=== PATIENT | female | born 1940 | race Caucasian/White ===

== ENCOUNTER 2018-04-28 10:45 | Outpatient (CLI) | payer MEDICARE, BC ==
--- NOTE | 2018-04-28 12:29 | RAD ---
TWO VIEWS CHEST: DATE: 04/28/2018. COMPARISON: Comparison is made to previous exam from 06/06/2015. FINDINGS: Two views chest demonstrate some cardiomegaly and calcification of the aorta. Some diffuse interstit ial markings seen throughout the lungs compatible with interstitial fibrotic changes unchanged since the previous comparison radiograph from 06/06/2015. Minimal blunting of the right costophrenic angle i s seen compatible with some right pleural scarring or tiny right-sided pleural effusion, also stable. No acute intrathoracic abnormality is seen. There is interval placement of a TAVR. IMPRESSION: Chronic interstitial changes. No acute intrathoracic abnormality is seen. POS: MICHELLE
== END 2018-04-28 10:46 | disposition home or self-care (01) ==
LOC: RAD 10:45
PROVIDERS: ATTEND Internal Medicine Pulmonary Disease
DX: R06.00 Dyspnea, unspecified (principal); J98.4 Other disorders of lung
CPT/HCPCS: 71046

== ENCOUNTER 2018-12-19 12:20 | Emergency (ER) | payer MEDICARE, BC ==
[2018-12-19] MEDS ORDERED: Adacel (T-DAP) 0.5 ML SYRINGE ONE (13:01)
[2018-12-19 13:17] LABS: #Eosinphils 0.1 thou/uL (0.0-0.7); #Lymphocytes 1.8 thou/uL (1.20-3.40); #Monocytes 1.2 thou/uL (0.11-0.59); #Neutrophils 9.7 thou/uL (1.40-6.50); %Basophils 0.3 % (0.0-1.0); %Eosinophils 1.1 % (0.0-10.0); %Lymphocytes 13.9 % (21.0-51.0); %Monocytes 9.2 % (0.0-10.0); %Neutrophils 75.5 % (42.0-75.0); Hemoglobin 11.8 g/dL (12.0-16.0); Mean Corpuscular HGB CONC 32.6 g/dL (32.0-36.0); Mean Corpuscular Hemoglobin 32.3 pg (27.0-31.0); Mean Corpuscular Volume 99.2 fL (78.0-98.0); Mean Platelet Volume 7.9 fL (7.4-10.4); Platelet Count 149 thou/uL (130-400); RBC Distribution Width 12.2 % (11.5-14.5); Red Blood Cell (RBC) Count 3.64 mill/uL (4.20-5.40); White Blood Cell (WBC) Count 12.8 thou/uL (4.8-10.8)
--- NOTE | 2018-12-19 13:23 | CT ---
CT head without contrast: Multiple axial tomograms obtained through the head without IV enhancement. INDICATIONS: Trauma COMPARISON: None FINDINGS: Ventricles have normal size and position. No evidence of intracranial mass, hemorrhage, edema, or infarct. Visualized sinuses and mastoids appear clear. Bony calvarium appears unremarkable. IMPRESSION: No acute finding
[2018-12-19 13:46] LABS: ALT (SGPT) 24 U/L (8-55); AST (SGOT) 30 U/L (5-34); Albumin 3.3 g/dL (3.4-4.8); Alkaline Phosphatase 102 U/L (40-110); Anion Gap 8 mmol/L (10-20); BUN (Urea Nitrogen) 9 mg/dL (9.8-20.1); Bilirubin, Total 0.8 mg/dL (0.2-1.2); Calc. Creatinine Clearance 0 mL/min (70-130); Calcium 8.1 mg/dL (7.8-10.44); Carbon Dioxide 30 mmol/L (23-31); Chloride 102 mmol/L (98-107); Estimated GFR-MDRD 89; Globulin 2.8 g/dL (2.4-3.5); Glucose 82 mg/dL (83-110); Potassium 3.3 mmol/L (3.5-5.1); Protein, Total 6.1 g/dL (6.0-8.3); Sodium 137 mmol/L (136-145)
--- NOTE | 2018-12-19 13:54 | RAD ---
EXAM: Single view of the chest HISTORY: Fall with cough and dehydration COMPARISON: 06/23/2011 FINDINGS: Single view of the chest shows a normal sized cardiomediastinal silhouette. Increased inte rstitial lung markings and flattening of the hemidiaphragms a be secondary to COPD. Atherosclerotic calcifications are seen in the aorta. There is no evidence of consolidation, mass, or pleural effusi on. The bones are unremarkable. IMPRESSION: No evidence of acute cardiopulmonary disease
--- NOTE | 2018-12-19 13:55 | RAD ---
Exam: Single view of the pelvis HISTORY: Fall with pelvic pain COMPARISON: None FINDINGS: A single view the pelvis shows no evidence of acute fracture or dislocation. No degenerativ e changes seen in either hip. IMPRESSION: No evidence of acute osseous abnormality.
[2018-12-19 14:01] LABS: CKMB 1.9 ng/mL (0-6.6)
[2018-12-19 17:05] LABS: Troponin I 0.083 ng/mL (< 0.028)
== END 2018-12-19 17:32 | disposition home or self-care (01) ==
LOC: ERS 12:20
DX: S01.01XA Laceration without foreign body of scalp, initial encounter (principal); R79.89 Other specified abnormal findings of blood chemistry; J44.9 Chronic obstructive pulmonary disease, unspecified; I10 Essential (primary) hypertension; E78.5 Hyperlipidemia, unspecified; F41.9 Anxiety disorder, unspecified; F17.210 Nicotine dependence, cigarettes, uncomplicated; Z79.51 Long term (current) use of inhaled steroids; Z79.899 Other long term (current) drug therapy; W19.XXXA Unspecified fall, initial encounter
CPT/HCPCS: 12001; 36415; 70450; 71045; 72170; 80053; 82553; 84484; 85025; 90471; 90715

== ENCOUNTER 2019-09-17 10:05 | Inpatient (IN) | payer MEDICARE, BC, OTHER ==
[2019-09-17] MEDS ORDERED: methylPREDNISolone Sod Succ/PF 125 MG/2 ML VIAL ONE (10:21)
[2019-09-17] MEDS ORDERED: Magnesium 2 GM/50 ML BAG (IN WATER) ONE (10:22)
[2019-09-17] MEDS ORDERED: cefTRIAXone\\ROCEPHIN 2 GM VIAL ONE (10:49)
[2019-09-17] MEDS ORDERED: Acetaminophen 500 MG TAB ONE (10:49)
[2019-09-17] MEDS ORDERED: Azithromycin 500 MG VIAL ONE (10:49)
[2019-09-17] MEDS ORDERED: Albuterol 200 PUFF (6.7GM INHALER) ONE (10:51)
[2019-09-17 10:52] LABS: #Basophils 0.1 thou/uL (0.0-0.2); #Eosinphils 0.2 thou/uL (0.0-0.7); #Monocytes 1.2 thou/uL (0.11-0.59); #Neutrophils 11.6 thou/uL (1.40-6.50); %Basophils 0.4 % (0.0-1.0); %Eosinophils 1.1 % (0.0-10.0); %Lymphocytes 13.1 % (21.0-51.0); %Monocytes 7.9 % (0.0-10.0); %Neutrophils 77.6 % (42.0-75.0); Hemoglobin 12.6 g/dL (12.0-16.0); Mean Corpuscular HGB CONC 32.9 g/dL (32.0-36.0); Mean Corpuscular Hemoglobin 32.3 pg (27.0-31.0); Mean Corpuscular Volume 98.2 fL (78.0-98.0); Mean Platelet Volume 8.6 fL (7.4-10.4); Platelet Count 186 thou/uL (130-400); RBC Distribution Width 12.7 % (11.5-14.5); Red Blood Cell (RBC) Count 3.89 mill/uL (4.20-5.40)
--- NOTE | 2019-09-17 11:10 | RAD ---
EXAM: Single view of the chest HISTORY: Shortness of breath and wheezing COMPARISON: 12/19/2018 FINDINGS: Single view of the chest shows an enlarged but stable cardiomediastinal silhouette. Increa sed interstitial markings are present. The patient is status post aortic valve repair. There are small bilateral pleural effusions with adjacent atelectasis versus infiltrates. The bones are unremar kable IMPRESSION: Bilateral pleural effusions with adjacent atelectasis versus infiltrates.
[2019-09-17 11:15] LABS: ALT (SGPT) 24 U/L (8-55); AST (SGOT) 42 U/L (5-34); Alkaline Phosphatase 128 U/L (40-110); Anion Gap 14 mmol/L (10-20); BUN (Urea Nitrogen) 9 mg/dL (9.8-20.1); Bilirubin, Total 0.9 mg/dL (0.2-1.2); CK (CPK) 84 U/L (29-168); Calc. Creatinine Clearance 0 mL/min (70-130); Calcium 8.6 mg/dL (7.8-10.44); Carbon Dioxide 30 mmol/L (23-31); Chloride 99 mmol/L (98-107); Estimated GFR-MDRD Greater than 90; Glucose 174 mg/dL (83-110); Potassium 3.5 mmol/L (3.5-5.1); Sodium 139 mmol/L (136-145)
[2019-09-17 11:20] LABS: CKMB 1.6 ng/mL (0-6.6)
[2019-09-17 11:43] LABS: Analyzer IN Cardio ER; Base Excess (BEa) 4.6 mEq/L (-2.0 to +3.0); CO2 Tension 48.2 mmHg (35.0-45.0); Calcium, Ionized (arterial) 1.06 mmol/L (1.12-1.30); Carboxyhemoglobin (COHb) 0.3 gm% (0.0-3.0); Hemoglobin (Hb) 12.4 g/dL (12.0-16.0); O2 Tension (PaO2), arterial 92.9 mmHg (> 70.0); Potassium - ABG Lab 2.72 mmol/L (3.70-5.30); pH, Arterial 7.41 (7.35-7.45)
[2019-09-17 11:46] LABS: Puncture Site LRA
[2019-09-17] MEDS ORDERED: Aspirin Chewable 81 MG TAB ONE (13:29)
[2019-09-17] MEDS ORDERED: Ondansetron PF 4 MG/2 ML Vial IVP PRN (14:11)
[2019-09-17] MEDS ORDERED: Acetaminophen 325 MG TAB PO PRN (14:11)
--- NOTE | 2019-09-17 15:59 | CT ---
EXAM: CT of the chest without contrast HISTORY: Shortness of breath for 2 days COMPARISON: None TECHNIQUE: Multiple contiguous axial images were obtained in a CT the chest without contrast. Coronal and sagittal reformats were performed. FINDINGS: HEART: Enlarged. Patient is status post aortic valve repair. Calcifications are seen in the coronary arteries and aorta. MEDIASTINUM: No hilar or mediastinal lymphadenopathy. Evaluation of the mediastinum is limited withou t IV contrast. LUNGS: No focal nodules or masses. Bronchiectasis is seen in the right lower lobe. PLEURAL SPACE: Small bilateral pleural effusions with adjacent atelectasis. A small amount of fluid i s seen in the minor fissure on the right. A right lower lobe infiltrate cannot be excluded. CHEST WALL SOFT TISSUES: Unremarkable OSSEOUS STRUCTURES: Degenerative changes in the spine. VISUALIZED SUBDIAPHRAGMATIC STRUCTURES: Unremarkable IMPRESSION: Bilateral pleural effusions with adjacent atelectasis. A right lower lobe infiltrate cannot be exclud ed.
[2019-09-17] MEDS: ALPRAZolam 0.25 MG TAB PO PRN ×2 (17:40→23:49)
[2019-09-17 17:46] LABS: Troponin I 0.063 ng/mL (< 0.028)
[2019-09-17] MEDS: Mometasone 200 MCG/Formoterol 5 MCG 120 PUFF INHALER INH SCH (18:26)
[2019-09-17 19:25] VITALS: BMI 29.6
[2019-09-17] MEDS: Dexamethasone 10 MG/ML VIAL SLOW IVP SCH (20:28)
[2019-09-17 20:52] LABS: Troponin I 0.057 ng/mL (< 0.028)
[2019-09-18] MEDS ORDERED: Albuterol Sulfate 2.5 mg/3 ml Neb NEB PRN (03:18)
[2019-09-18 03:50] LABS: #Lymphocytes 0.6 thou/uL (1.20-3.40); #Monocytes 0.1 thou/uL (0.11-0.59); #Neutrophils 6.1 thou/uL (1.40-6.50); %Eosinophils 0.4 % (0.0-10.0); %Lymphocytes 8.8 % (21.0-51.0); %Monocytes 1.7 % (0.0-10.0); %Neutrophils 89.1 % (42.0-75.0); Hemoglobin 11.9 g/dL (12.0-16.0); Mean Corpuscular Hemoglobin 31.4 pg (27.0-31.0); Mean Corpuscular Volume 97.9 fL (78.0-98.0); Mean Platelet Volume 8.7 fL (7.4-10.4); Platelet Count 167 thou/uL (130-400); RBC Distribution Width 12.7 % (11.5-14.5); Red Blood Cell (RBC) Count 3.78 mill/uL (4.20-5.40); White Blood Cell (WBC) Count 6.8 thou/uL (4.8-10.8)
[2019-09-18 05:24] LABS: Anion Gap 14 mmol/L (10-20); BUN (Urea Nitrogen) 8 mg/dL (9.8-20.1); Calc. Creatinine Clearance 95 mL/min (70-130); Calcium 8.6 mg/dL (7.8-10.44); Carbon Dioxide 29 mmol/L (23-31); Chloride 103 mmol/L (98-107); Estimated GFR-MDRD Greater than 90; Glucose 135 mg/dL (83-110); Potassium 3.5 mmol/L (3.5-5.1); Sodium 142 mmol/L (136-145)
--- NOTE | 2019-09-18 05:41 | HP ---
PRIMARY CARE PROVIDER: Estrella, Dr. Fox. She states at this time she has been sick 2 or 3 days, shortness of breath, really gasping for breath at times. She has oxygen at home. She was placed on 100% rebreather here. She is in the high 90s to 100%. No fever. No chills. She has a chronic cough, that maybe somewhat worse. No diarrhea. No loss of taste or smell. No other symptomatology. She has COPD. She smoked up until April. In the distant past, she has smoked as much as 3 packs a day. She has hypertension. In 2016, she had transarterial aortic valve replacement. She has dyslipidemia. She has had stents in both carotid arteries and subclavian on one side. She has had acute hearing loss in her left ear. She has had cataract surgery bilaterally. CURRENT MEDICATIONS: 1. Albuterol inhaler two puffs every 4 hours. 2. Ellipse Compact. 3. Synthroid 75 mcg a day. 4. Diltiazem 180 mg a day. 5. Lorazepam 1 mg every 4 hours p.r.n. 6. Lipitor 40 mg a day. 7. Pepcid 20 mg a day. 8. Trelegy Ellipta 100/62.5/25 inhalation metered-dose inhaler once a day. ALLERGIES: SINGULAIR. SURGICAL HISTORY: Given in medical history. FAMILY HISTORY: Mother, 2 uncles, and grandfather had coronary artery disease. She is . Full code status. Nancy Dejesus, daughter is next of kin for decision making. She smoked as much as 3 packs of cigarettes a day, started decreasing slowly until she quit in April of this year. She drinks rare alcohol. REVIEW OF SYSTEMS: GENERAL: No fainting or headaches, but she has some dizziness arising from a stooped position. EYES: No double vision, blurred vision, flashing lights. EAR, NOSE, AND THROAT: Hard of hearing on the left. No ear pain or drainage. No nasal bleeding. No trouble swallowing. CARDIAC: No chest pain, orthopnea, or paroxysmal nocturnal dyspnea. RESPIRATIONS: Chronic shortness of breath, on home O2, 2 L per nasal cannula. Chronic cough, nonproductive. GASTROINTESTINAL: Some nausea this morning. No abdominal pain. No vomiting. No melena. GENITOURINARY: No hematuria or dysuria. MUSCULOSKELETAL: She states feet swell on occasion and she has recently started taking a 20 mg Lasix for that. NEUROLOGICAL: No strokes, seizures, or focal weakness. PSYCHIATRIC: No anxiety or depression. SKIN: Bruises easily. No rash. No bleeding. HEME/LYMPH: No tender or swollen lymph nodes in axilla, inguinal, or cervical area. PHYSICAL EXAMINATION: GENERAL: She is alert, pleasant, cooperative lady, really in no distress at the present time except for the fact that she has high-flow O2 at 100% by nasal cannula on. VITAL SIGNS: Blood pressure 144/65, respirations 18 to 24, temperature was 98.6, pulse was 85 to 92. HEAD, EYES, EARS, NOSE, AND THROAT: Reveal pupils equal and round with implants. Extraocular movements are intact. Sclerae are white. Tympanic membranes are clear. Nose is clear. Oral mucous membranes are wet. Dental hygiene is good. CHEST: Hyperresonant with wheezes and rhonchi in all cotter. HEART: Regular rate and rhythm. First and second heart sounds are clear. There are no appreciated murmurs or gallops. ABDOMEN: Soft. Bowel sounds are normal. There is no hepatosplenomegaly. No masses. No rebound. No bruits. EXTREMITIES: Reveal trace edema with no cyanosis or clubbing. PULSES: Carotid, radial, and femoral pulses intact. Pedal pulses palpable marginally. SKIN: Warm and dry without significant bruises or rash. HEME/LYMPH: No tender or swollen lymph nodes in axilla, inguinal, or cervical area. NEUROLOGIC: Cranial nerves 2 through 12 are intact. Deep tendon reflexes symmetric. IMAGING STUDIES: Chest x-ray personally reviewed reveals bilateral pleural effusions, bilateral infiltrates, right greater than left. No cardiomegaly. LABORATORY DATA: COVID test was negative. Chemistries, lytes are balanced. BUN and creatinine within normal limits. Bilirubin 0.9, AST 42, ALT 24. BNP was 1842. Troponin 0.04. ABG revealed a pH 7.41, O2 of 92.9 on high-flow O2, and a CO2 of 48.2. White cell count is 15.0 with a lymphopenia, hemoglobin is 12.6, platelet count is 186,000. ADMITTING DIAGNOSES: The patient had 2 COVID tests that are negative, however, because of her symptomatology, chest x-ray, I am ordering a noncontrast CT of the chest, D-dimer, ferritin and CRP, acute reactants before I make a final decision on whether to admit her as a COVID or not. At this time, she will be considered a COVID risk with pneumonia, bilateral pleural effusions, chronic obstructive pulmonary disease exacerbation, acute respiratory failure, combined prosthetic aortic valve, atherosclerotic vascular disease, hypertension, and hypothyroidism. Currently, antibiotics have been given. Inhalers have been ordered instead of nebulizers. Steroids have been given. When the lab and CAT scan are available, I will make a final decision on whether to make this patient a COVID rule out isolation, she currently is not. Job ID: [id number]
[2019-09-18] MEDS: Mometasone 200 MCG/Formoterol 5 MCG 120 PUFF INHALER INH SCH ×2 (05:48→18:20)
[2019-09-18] MEDS: ALPRAZolam 0.25 MG TAB PO PRN ×3 (05:50→20:41)
--- NOTE | 2019-09-18 07:32 | PDOC.HOSPP ---
- Subjective Encounter Date: 09/18/19 Encounter Time: 07:25 Subjective: acute sob resolved, no additional complaints - Objective Vital Signs & Weight: Vital Signs (12 hours) Temp Pulse Resp Pulse Ox 09/18/19 05:48 90 24 H 100 09/18/19 03:40 97.4 F L 09/18/19 02:00 97.5 F L 09/18/19 00:00 97.4 F L 09/17/19 20:00 97.8 F 99 Weight Weight 157 lb Most Recent Monitor Data Heart Rate from ECG 84 NIBP 152/80 NIBP BP-Mean 104 Respiration from ECG 14 SpO2 100 I&O: 09/17/19 09/18/19 09/19/19 06:59 06:59 06:59 Intake Total 810 Balance 810 Result Diagrams: 09/18/19 03:22 09/18/19 03:22 Hospitalist ROS - Medication Medications: Active Medications Generic Name Dose Route Start Last Admin Trade Name Freq PRN Reason Stop Dose Admin Alprazolam 0.25 mg 09/17/19 17:15 09/18/19 05:50 Xanax PO 0.25 mg Q6H PRN Administration Anxiety Dexamethasone 10 mg 09/17/19 21:00 09/17/19 20:28 Decadron SLOW IVP 10 mg Q12HR YANIRA Administration Mometasone Furoate/Formoterol Fumar 2 puff 09/17/19 18:30 09/18/19 05:48 Dulera 200 Mcg/5 Mcg Inhaler INH 2 puff BID-RT YANIRA Administration - Exam General Appearance: awake alert Neck: no JVD Heart: RRR, no murmur Respiratory - other findings: diminished BS Gastrointestinal: soft, non-tender, normal bowel sounds Extremities: no edema Hosp A/P (1) Acute and chronic respiratory failure with hypoxia Code(s): J96.21 - ACUTE AND CHRONIC RESPIRATORY FAILURE WITH HYPOXIA Status: Acute (2) Chronic obstructive pulmonary disease with (acute) exacerbation Code(s): J44.1 - CHRONIC OBSTRUCTIVE PULMONARY DISEASE W (ACUTE) EXACERBATION Status: Acute (3) PNA (pneumonia) Code(s): J18.9 - PNEUMONIA, UNSPECIFIED ORGANISM Status: Acute Qualifiers: Pneumonia type: due to Pneumococcus Laterality: right Lung location: lower lobe of lung Qualified Code(s): J13 - Pneumonia due to Streptococcus pneumoniae (4) HTN (hypertension) Code(s): I10 - ESSENTIAL (PRIMARY) HYPERTENSION Status: Chronic Qualifiers: Hypertension type: essential hypertension Qualified Code(s): I10 - Essential (primary) hypertension (5) Hypothyroid Code(s): E03.9 - HYPOTHYROIDISM, UNSPECIFIED Status: Chronic Qualifiers: Hypothyroidism type: unspecified Qualified Code(s): E03.9 - Hypothyroidism , unspecified - Plan move to medical cont resp tx, iv antibx await ID opinion reinstitute diltiazem, synthroid, lipitor
[2019-09-18] MEDS: Enoxaparin Sodium 40 MG/0.4 ML SYRINGE SC SCH (08:29)
[2019-09-18] MEDS: Dexamethasone 10 MG/ML VIAL SLOW IVP SCH ×2 (08:29→20:57)
[2019-09-18] MEDS ORDERED: Prevnar 13-Val Conj/PF 0.5 ML SYRINGE IM ONE (09:00)
[2019-09-18] MEDS: cefTRIAXone\\ROCEPHIN 1 GM in Sodium Chloride 0.9% 100 ML IVPB SCH (13:04)
--- NOTE | 2019-09-18 14:06 | CON ---
DATE OF CONSULTATION: 09/18/2019 REASON FOR CONSULTATION: Hypoxemia, COPD, aortic valve disease, and a concern with COVID infection. HISTORY OF PRESENT ILLNESS: A 79-year-old with history of chronic smoking, advanced COPD, and aortic valve insufficiency, managed with TAVR actually in [place] a few years ago. Now, she has developed what has been described as failure of the valve and she was scheduled to go to [place] for replacement, and because of the epidemic, that has been placed on hold for now. In July, she developed a fairly rapid worsening of her respiratory status, had to be brought into [facility], and she was treated there in [place], and now she experienced the same thing, usually starts a few days before and then progressed to the point where she required O2 supplementation. Also in the emergency room note, it is stated that the patient reported fever. When I inquired about fever, she has adamantly denied that she ever had a fever, never felt chills of any significant nature. She does have productive cough with greenish sputum. No headaches. No visual symptoms, sore throat, odynophagia, or dysphagia. No dental pain. No back pain. No abdominal pain or diarrhea. No genitourinary symptoms. No joint symptoms other than chronic osteoarthrosis symptoms. No neurological problems. PAST MEDICAL HISTORY: 1. Chronic smoking. 2. COPD. 3. Coronary artery disease with stents x3. 4. Aortic valve replacement via TAVR. 5. Hypertension. 6. Hyperlipidemia. 7. Degenerative joint disease. 8. Irritable bowel syndrome or inflammatory bowel disease, not clear. 9. She also has had a hysterectomy. 10. Tonsillectomy. 11. Lumpectomy. SOCIAL HISTORY: Lives in the area. Actually, she is still smoking cigarettes daily and has smoked for 30 years, half a pack a day, it looks like she quit in April just recently. ALLERGIES: SINGULAIR. CURRENT MEDICATIONS: 1. Albuterol. 2. Alprazolam. 3. Lipitor. 4. Azithromycin. 5. Ceftriaxone. 6. Dexamethasone. 7. Enoxaparin. 8. Levothyroxine. 9. Ondansetron. PHYSICAL EXAMINATION: VITAL SIGNS: T-max 98.4, blood pressure 140/60, O2 saturation 99 on 2 L nasal cannula. SKIN: With fewer areas of bruising. Peripheral IV access and she is voiding in the bedside commode. No lymphadenopathy. HEENT: Ocular movements conjugate. Oral cavity is normal with dentures. NECK: Supple. LUNGS: With a few areas with wheezing, a few crackles noted particularly on the right side, somewhat diminished lung sounds. HEART: S1 and S2 and a somewhat harsh 2/6 to 3/6 systolic murmur at the aortic area, question of a diastolic murmur as well. No S3. Regular rate. ABDOMEN: Soft, not distended or tender. No ascites. No bladder distention. EXTREMITIES: There is 1 to 2+ edema in the lower extremities. Pulses 1+ in dorsalis pedis. Moves extremities equally. NEUROLOGIC: She is awake, oriented, follows commands. A little bit of difficulty with recollection, but not out of the ordinary. LABORATORY DATA: Reportedly, had two SARS-CoV test, one in July, another one on the and she has had a rapid test reportedly done, although I do not see it here. The other labs are the white cell count was 15,000 down to 6.8, hemoglobin 12.6, platelets 186, 77% neutrophils, and the lymphocytes were down to 0.6. D-dimer 3.69. A pH of 7.4, pCO2 of 48, and pO2 of 92. Creatinine 0.56. Ferritin 113 and CRP 3.14. Albumin 4.0. Chest CT with pleural effusions, adjacent atelectasis, right lower lobe infiltrate, possible. ASSESSMENT: 1. Severe chronic obstructive pulmonary disease. 2. Aortic valve insufficiency status post transaortic valve replacement with now reported failure of the valve, in need for redo transaortic valve replacement. 3. Worsening dyspnea, which has happened in two episodes, one in July, now this one. She does have some abnormalities that might be suggestive of community-acquired pneumonia, but the findings are not typical of COVID infection. DISCUSSION: Her pretest likelihood I would say is in the 40% range, so her post-test likelihood is less than 15% I would say, but to be sure we will check her antibody levels, and if they are negative, then I think that we have effectively ruled out COVID. It is likely that the COPD plus the superimposed valve dysfunction are contributing to her symptoms and the possible community-acquired pneumonia, which is more likely to be bacterial in etiology. Job ID: [id number] [facility]
[2019-09-18] MEDS: Azithromycin 500 MG in Sodium Chloride 0.9% 250 ML 250 ML IVPB SCH (15:25)
[2019-09-18 15:27] LABS: SARS-CoV-2 MS2 Positive; SARS-CoV-2 N Gene Negative; SARS-CoV-2 S Gene Negative; SARS-CoV-2 orf1ab Negative
[2019-09-18] MEDS: Atorvastatin Calcium 40 MG TAB PO SCH (20:41)
[2019-09-19] MEDS ORDERED: Bacteriostatic Water 30 ML VIAL FS PRN (01:10)
[2019-09-19] MEDS ORDERED: methylPREDNISolone Sod Succ/PF 125 MG/2 ML VIAL IVP SCH (01:15)
[2019-09-19] MEDS ORDERED: Lorazepam 2 MG/ML VIAL SLOW IVP SCH (01:15)
[2019-09-19] MEDS ORDERED: Magnesium 2 GM/50 ML 2 GM in Premix Bag 1 BAG IVPB SCH (01:15)
[2019-09-19] MEDS: Levothyroxine Sodium 75 MCG TAB PO SCH (05:55)
[2019-09-19] MEDS: ALPRAZolam 0.25 MG TAB PO PRN ×3 (06:10→20:36)
[2019-09-19] MEDS: Mometasone 200 MCG/Formoterol 5 MCG 120 PUFF INHALER INH SCH ×2 (06:11→19:11)
[2019-09-19] MEDS: Enoxaparin Sodium 40 MG/0.4 ML SYRINGE SC SCH (10:15)
[2019-09-19] MEDS: Dexamethasone 10 MG/ML VIAL SLOW IVP SCH (10:15)
[2019-09-19] MEDS: cefTRIAXone\\ROCEPHIN 1 GM in Sodium Chloride 0.9% 100 ML IVPB SCH (11:42)
--- NOTE | 2019-09-19 12:51 | PDOC.HOSPP ---
- Subjective Encounter Date: 09/19/19 Encounter Time: 12:49 Subjective: still dyspneic, no fever - Objective Vital Signs & Weight: Vital Signs (12 hours) Temp Pulse Resp BP BP Pulse Ox 09/19/19 11:00 98.1 F 92 15 171/76 H 92 L 09/19/19 07:22 97.9 F 88 16 173/86 H 98 09/19/19 05:00 98.3 F 94 20 177/81 H 93 L 09/19/19 01:25 87 20 181/78 H 97 09/19/19 00:55 97.9 F 102 H 24 H 191/79 H 87 L Weight Weight 157 lb Most Recent Monitor Data Heart Rate from ECG 88 NIBP 143/64 NIBP BP-Mean 90 Respiration from ECG 13 SpO2 100 I&O: 09/18/19 09/19/19 09/20/19 06:59 06:59 06:59 Intake Total 1300 Output Total 850 Balance 450 Result Diagrams: 09/18/19 03:22 09/18/19 03:22 Hospitalist ROS - Medication Medications: Active Medications Generic Name Dose Route Start Last Admin Trade Name Freq PRN Reason Stop Dose Admin Alprazolam 0.25 mg 09/17/19 17:15 09/19/19 06:10 Xanax PO 0.25 mg Q6H PRN Administration Anxiety Atorvastatin Calcium 40 mg 09/18/19 21:00 09/18/19 20:41 Lipitor PO 40 mg HS YANIRA Administration Diltiazem HCl 180 mg 09/18/19 09:00 09/19/19 10:15 Cardizem Cd PO 180 mg DAILY YANIRA Administration Enoxaparin Sodium 40 mg 09/18/19 09:00 09/19/19 10:15 Lovenox SC 40 mg 0900 YANIRA Administration Azithromycin 500 mg/ Sodium 250 mls @ 250 mls/hr 09/18/19 11:00 09/18/19 15: 25 Chloride IVPB 250 mls Q24HR YANIRA Administration Ceftriaxone Sodium 1 gm/ 100 mls @ 200 mls/hr 09/18/19 11:00 09/19/19 11:42 Sodium Chloride IVPB 100 mls Q24HR YANIRA Administration Levothyroxine Sodium 75 mcg 09/19/19 06:00 09/19/19 05:55 Synthroid PO 75 mcg 0600 YANIRA Administration Mometasone Furoate/Formoterol Fumar 2 puff 09/17/19 18:30 09/19/19 06:11 Dulera 200 Mcg/5 Mcg Inhaler INH 2 puff BID-RT YANIRA Administration Sodium Chloride 10 ml 09/18/19 09:00 09/19/19 10:15 Flush - Normal Saline IVF 10 ml Q12HR YANIRA Administration - Exam General Appearance: awake alert Neck: no JVD Heart: RRR, III/IV Respiratory - other findings: wheezes, rales all cotter Gastrointestinal: soft, non-tender, non-distended, normal bowel sounds Extremities: no edema Hosp A/P (1) Acute and chronic respiratory failure with hypoxia Code(s): J96.21 - ACUTE AND CHRONIC RESPIRATORY FAILURE WITH HYPOXIA Status: Acute (2) Chronic obstructive pulmonary disease with (acute) exacerbation Code(s): J44.1 - CHRONIC OBSTRUCTIVE PULMONARY DISEASE W (ACUTE) EXACERBATION Status: Acute (3) PNA (pneumonia) Code(s): J18.9 - PNEUMONIA, UNSPECIFIED ORGANISM Status: Acute Qualifiers: Pneumonia type: due to Pneumococcus Laterality: right Lung location: lower lobe of lung Qualified Code(s): J13 - Pneumonia due to Streptococcus pneumoniae (4) HTN (hypertension) Code(s): I10 - ESSENTIAL (PRIMARY) HYPERTENSION Status: Chronic Qualifiers: Hypertension type: essential hypertension Qualified Code(s): I10 - Essential (primary) hypertension (5) Hypothyroid Code(s): E03.9 - HYPOTHYROIDISM, UNSPECIFIED Status: Chronic Qualifiers: Hypothyroidism type: unspecified Qualified Code(s): E03.9 - Hypothyroidism , unspecified (6) CAD (coronary artery disease) Code(s): I25.10 - ATHSCL HEART DISEASE OF [place] CORONARY ARTERY W/O ANG PCTRS Status: Acute - Plan move to medical cont resp tx, iv antibx appreciate ID input reinstitute diltiazem, synthroid, lipitor stitch to duoneb, iv medrol
[2019-09-19] MEDS: methylPREDNISolone Sod Succ 40 MG VIAL IVP SCH ×2 (14:58→21:08)
[2019-09-19] MEDS: Azithromycin 500 MG in Sodium Chloride 0.9% 250 ML 250 ML IVPB SCH (15:02)
[2019-09-19 20:23] LABS: SARS-CoV-2 IgG Ab Non-Reactive (NonReactive); SARS-CoV-2 IgG Index 0.13 S/CO (< 1.40)
[2019-09-19] MEDS: Atorvastatin Calcium 40 MG TAB PO SCH (20:35)
[2019-09-20] MEDS ORDERED: ALPRAZolam 0.25 MG TAB PO SCH ×2 (00:45→22:15)
[2019-09-20] MEDS: methylPREDNISolone Sod Succ 40 MG VIAL IVP SCH ×3 (05:03→21:45)
[2019-09-20] MEDS: Levothyroxine Sodium 75 MCG TAB PO SCH (05:03)
[2019-09-20] MEDS: ALPRAZolam 0.25 MG TAB PO PRN ×4 (05:32→22:09)
[2019-09-20] MEDS ORDERED: Benzonatate 100 MG CAP PO PRN (06:26)
[2019-09-20] MEDS: Mometasone 200 MCG/Formoterol 5 MCG 120 PUFF INHALER INH SCH ×2 (06:30→19:01)
[2019-09-20 07:39] VITALS: BP 182/72
[2019-09-20] MEDS: Enoxaparin Sodium 40 MG/0.4 ML SYRINGE SC SCH (09:08)
--- NOTE | 2019-09-20 11:01 | PDOC.HOSPP ---
- Subjective Encounter Date: 09/20/19 Encounter Time: 10:59 Subjective: still sob, no better - Objective Vital Signs & Weight: Vital Signs (12 hours) Temp Pulse Resp BP Pulse Ox 09/20/19 08:00 95 09/20/19 07:39 98.0 F 102 H 20 182/72 H 95 09/20/19 06:33 89 18 95 09/20/19 06:30 89 18 95 09/20/19 05:08 97.9 F 93 19 178/87 H 96 09/20/19 00:44 97.6 F 88 17 168/73 H 97 09/19/19 23:38 92 L Weight Weight 157 lb Most Recent Monitor Data Heart Rate from ECG 88 NIBP 143/64 NIBP BP-Mean 90 Respiration from ECG 13 SpO2 100 I&O: 09/19/19 09/20/19 09/21/19 06:59 06:59 06:59 Intake Total 480 Balance 480 Result Diagrams: 09/18/19 03:22 09/18/19 03:22 Hospitalist ROS - Medication Medications: Active Medications Generic Name Dose Route Start Last Admin Trade Name Freq PRN Reason Stop Dose Admin Albuterol/Ipratropium 3 ml 09/19/19 13:00 09/20/19 06:33 Duoneb NEB 3 ml [id number] YANIRA Administration Alprazolam 0.25 mg 09/17/19 17:15 09/20/19 05:32 Xanax PO 0.25 mg Q6H PRN Administration Anxiety Atorvastatin Calcium 40 mg 09/18/19 21:00 09/19/19 20:35 Lipitor PO 40 mg HS YANIRA Administration Benzonatate 100 mg 09/20/19 06:26 09/20/19 06:33 Tessalon PO 100 mg Q4H PRN Administration Cough Diltiazem HCl 180 mg 09/18/19 09:00 09/20/19 09:08 Cardizem Cd PO 180 mg DAILY YANIRA Administration Enoxaparin Sodium 40 mg 09/18/19 09:00 09/20/19 09:08 Lovenox SC Not Given 0900 YANIRA Azithromycin 500 mg/ Sodium 250 mls @ 250 mls/hr 09/18/19 11:00 09/19/19 15: 02 Chloride IVPB 250 mls Q24HR YANIRA Administration Ceftriaxone Sodium 1 gm/ 100 mls @ 200 mls/hr 09/18/19 11:00 09/19/19 11:42 Sodium Chloride IVPB 100 mls Q24HR YANIRA Administration Levothyroxine Sodium 75 mcg 09/19/19 06:00 09/20/19 05:03 Synthroid PO 75 mcg 0600 YANIRA Administration Methylprednisolone Sodium Succinate 20 mg 09/19/19 14:00 09/20/19 05:03 Solu-Medrol IVP 20 mg Q8HR YANIRA Administration Mometasone Furoate/Formoterol Fumar 2 puff 09/17/19 18:30 09/20/19 06:30 Dulera 200 Mcg/5 Mcg Inhaler INH 2 puff BID-RT YANIRA Administration Sodium Chloride 10 ml 09/18/19 09:00 09/20/19 09:08 Flush - Normal Saline IVF 10 ml Q12HR YANIRA Administration Sterile Water 2 ml 09/19/19 01:10 09/19/19 21:09 Bacteriostatic Water FS 2 ml PRN PRN Administration RECONSTITUTION - Exam Neck: no JVD Heart: RRR Respiratory - other findings: no wheezes, lower lube rales Gastrointestinal: soft, non-tender, normal bowel sounds Extremities: no edema Hosp A/P (1) Acute and chronic respiratory failure with hypoxia Code(s): J96.21 - ACUTE AND CHRONIC RESPIRATORY FAILURE WITH HYPOXIA Status: Acute (2) Chronic obstructive pulmonary disease with (acute) exacerbation Code(s): J44.1 - CHRONIC OBSTRUCTIVE PULMONARY DISEASE W (ACUTE) EXACERBATION Status: Acute (3) PNA (pneumonia) Code(s): J18.9 - PNEUMONIA, UNSPECIFIED ORGANISM Status: Acute Qualifiers: Pneumonia type: due to Pneumococcus Laterality: right Lung location: lower lobe of lung Qualified Code(s): J13 - Pneumonia due to Streptococcus pneumoniae (4) HTN (hypertension) Code(s): I10 - ESSENTIAL (PRIMARY) HYPERTENSION Status: Chronic Qualifiers: Hypertension type: essential hypertension Qualified Code(s): I10 - Essential (primary) hypertension (5) Hypothyroid Code(s): E03.9 - HYPOTHYROIDISM, UNSPECIFIED Status: Chronic Qualifiers: Hypothyroidism type: unspecified Qualified Code(s): E03.9 - Hypothyroidism , unspecified (6) CAD (coronary artery disease) Code(s): I25.10 - ATHSCL HEART DISEASE OF [place] CORONARY ARTERY W/O ANG PCTRS Status: Acute - Plan move to medical cont resp tx, iv antibx ECHO card consult re dysfunctioning TAVR reinstitute diltiazem, synthroid, lipitor stitch to duoneb, iv medrol
--- NOTE | 2019-09-20 12:18 | RAD ---
RADIOGRAPH CHEST 1 VIEW: DATE: 09/20/2019 TIME: 11:54 AM HISTORY: 79-year-old female with dyspnea COMPARISON: 09/17/2019 FINDINGS: Region of groundglass infiltrate in right upper-mid lung field appears slightly worse or new now comp ared to previous. No other interval change. IMPRESSION: 1. No interval change in bilateral small to moderate pleural effusions. 2. No interval change in diffuse prominent interstitial markings, acute versus chronic. 3. Apparent new small faint right upper lobe infiltrate. 4. No other interval change. 5. Status post TAVR
[2019-09-20] MEDS: Azithromycin 500 MG in Sodium Chloride 0.9% 250 ML 250 ML IVPB SCH (12:28)
--- NOTE | 2019-09-20 13:19 | PDOC.EVN ---
Event Note - Event Note Event Note: discussed transfer to [facility] with admitting doctor- she is accepted and on waiting list
--- NOTE | 2019-09-20 14:50 | PDOC.EVN ---
Event Note - Event Note Event Note: spoke with Dr Chapa- RAFFAELE- TAVR totally dysfcnal- needs surgery. transfer to [facility] pending bed availability. REquested patient be move to CCU,. he will call [facility]
[2019-09-20] MEDS: cefTRIAXone\\ROCEPHIN 1 GM in Sodium Chloride 0.9% 100 ML IVPB SCH (15:27)
--- NOTE | 2019-09-20 15:50 | CON ---
DATE OF CONSULTATION: Critical care note, time 30 minutes. HISTORY OF PRESENT ILLNESS: The patient is an unfortunate 79-year-old woman, who presents with increasing dyspnea. The patient has previously undergone a TAVR procedure in 2016. She also has a history of coronary artery disease. She has undergone several PTCA and stent placements. The patient recently saw Dr. Mercado because of progressive dyspnea. She was noted to have failure of her aortic valve.She was scheduled to undergo a TAVR evaluation in [place], and the patient was admitted with increasing dyspnea. The patient denied having any chest discomfort. PAST MEDICAL HISTORY: 1. History of aortic stenosis. 2. Coronary artery disease. 3. History of hypertension. 4. Dyslipidemia. PAST SURGICAL HISTORY: Tonsillectomy and lumpectomy. SOCIAL HISTORY: Former smoker. ALLERGIES: MONTELUKAST. MEDICATIONS: See nursing list. PHYSICAL EXAMINATION: GENERAL: Ill-appearing woman, in mild distress. VITAL SIGNS: Blood pressure 178/87. NECK: Showed no jugular venous distention. LUNGS: Have crackles in both lung cotter. HEART: Regular rate and rhythm. Normal S1 and S2 with a 3/6 systolic murmur. ABDOMEN: Nondistended. EXTREMITIES: Showed mild bilateral edema. LABORATORY DATA: Sodium 139, potassium 3.5, chloride 99, bicarb 30, BUN 9, creatinine 0.61. Her glucose is 174. BNP was 1842. White blood cell count is 6.8, hemoglobin 11.9, hematocrit 37.9, and platelets 167. EKG revealed her to be in sinus tachycardia with a left bundle-branch block. IMPRESSION: 1. Congestive heart failure. 2. History of TAVR. 3. History of coronary artery disease. 4. Hypertension. 5. Chronic obstructive pulmonary disease. This patient presented with dyspnea due to congestive heart failure. The patient's emergent echocardiogram shows severe decrease in left ventricular systolic function with very elevated gradient across her aortic valve. From a cardiac standpoint , I immediately consulted furnace mechanic helper at [facility]. She has been accepted for transfer. The patient is in critical condition. She will be transferred to the ICU while she waits to be transferred. We will follow this patient with you through her hospitalization. Job ID: [id number] MTDD
--- NOTE | 2019-09-20 16:36 | PRG ---
DATE OF SERVICE: 09/20/2019 SUBJECTIVE: Ms. Goodman is slowly getting better. Still coughing intermittently, not as much sputum production as she usually produces at home. No chest pain. No abdominal pain. She was evaluated by Dr. Chapa and had an echocardiogram, which showed decrease in LV function and elevated gradient across the aortic valve. The patient is supposed to be transferred to the ICU at [facility]. OBJECTIVE: VITAL SIGNS: Show heart rate of 102 to 94. She is afebrile. BP 180/72, O2 saturations are 95% on 2 L. GENERAL: She does not appear in acute distress. LUNGS: With coarse lung sounds. HEART: S1 and S2. ABDOMEN: Soft. EXTREMITIES: 1+ edema in lower extremities. LABORATORY DATA: COVID antibody was nonreactive and she has 2 negative COVID PCRs. White cell count is down to 6.8, hemoglobin 11.9, platelets 167. Creatinine 0.56. ASSESSMENT AND DISCUSSION: COVID infection has been effectively ruled out, so I think as discussed by Dr. Edwards and Dr. Chapa, the patient's chronic obstructive pulmonary disease plus the superimposed valve dysfunction are causing the patient's clinical decompensation. The patient is to be transferred to [facility], where she has had all the previous procedures done. Job ID: [id number]
[2019-09-20] MEDS ORDERED: Furosemide 20 MG/2 ML VIAL SLOW IVP SCH (17:45)
[2019-09-20 19:56] VITALS: TEMP 97.9
[2019-09-20] MEDS: Atorvastatin Calcium 40 MG TAB PO SCH (20:17)
[2019-09-20] MEDS ORDERED: ALPRAZolam 0.5 MG TAB PO SCH (22:00)
--- NOTE | 2019-09-21 07:22 | DIS ---
DATE OF ADMISSION: 09/17/2019 DATE OF DISCHARGE: 09/20/2019 PRIMARY CARE PROVIDER: Dr. Fox at [facility]. PRESS SET UP: Dr. Mercado at [facility]. ANTICIPATED DATE OF TRANSFER: 09/20/2019 FINAL DIAGNOSES: Acute on chronic respiratory failure with hypoxia; chronic obstructive pulmonary disease with acute exacerbation; pneumonia, unspecified; dysfunctional transcatheter aortic valve replacement; coronary artery disease; hypertension. DISCHARGE MEDICATIONS: At the time of discharge, 1. Xanax 0.25 mg p.o. p.r.n. 2. Lipitor 40 mg a day. 3. Zithromax 250 mg IV piggyback q.24 hours. 4. Ceftriaxone 1 g q.24 hours. 5. Diltiazem 180 mg p.o. daily. 6. Enoxaparin 40 mg subcu daily. 7. DuoNeb 3 mL q.6 hours p.r.n. 8. Levothyroxine 75 mcg a day. 9. Methylprednisolone 20 mg IV q.12 hours. 10. Mometasone/formoterol 2 puffs inhaled twice a day. 11. Aspirin 81 mg a day. ALLERGIES: SINGULAIR. CODE STATUS: Full resuscitation. HOSPITAL COURSE: The patient was admitted to the [facility] through the emergency department with shortness of breath. She is on home oxygen. She has history of COPD, smoked up until April of this year, as much as 3 packs a day in the past. In 2016, she had a transarterial aortic valve replacement. She has been told it needs replacement. Chest was hyper-resonant with rhonchi and wheezes in all cotter. She has had 3 COVID tests that are negative. Chest x-ray revealed bilateral pleural effusions with atelectasis/infiltrates. Blood cultures are drawn, which are no growth at 48 hours. She was put on antibiotics and steroids for COPD. Her lungs have cleared; however, she continues to have rales in the bases. This morning, she asked to be transferred to [facility]. I had already at that time called for consult and an echocardiogram per Dr. Chapa. I initiated the transfer through the Transfer Center. I had 2 conversations with the accepting admitting physician, told the patient was accepted for admission, no current bed available, and that they would call when a bed was available. They have not been called yet. Currently, the patient's vital signs are temperature 98, pulse 94, blood pressure 182/72, 95% saturation on room air. Her current laboratory, most recent CBC on 09/17 was WBC 6.8, hemoglobin 11.9, and platelet count 167,000. Chemistries on 09/17 were balanced. On admission, her troponins were mildly elevated at 0.04, 0.06, and 0.057. Dr. Chapa called me after he read the echocardiogram and said that her leaflets basically did not move and that she needed transfer immediately to [facility]. I discussed how to facilitate that. He stated he would call them and asked that I move her to Critical Care Unit, which I have done. She is currently in no distress. Oxygen saturations are adequate. Heart sounds are difficult at this point. There are basilar rales. We are currently awaiting the call to transfer her. Job ID: [id number]
--- NOTE | 2019-09-21 08:09 | PQF ---
Dear : Daphne Edwards Date : 09/21/19 Please exercise your independent, professional judgment in responding to the clarification form. Clinical indicators are provided on the bottom of this form for your review Can you please further clarify the type and acuity of CHF? Please check appropriate box(es): HEART FAILURE: A. ACUITY [ ] Acute [ ] Acute on Chronic [ x] Chronic B. TYPE: [ x] Systolic / HFrEF [ ] Diastolic / HFpEF [ ] Combined Systolic / Diastolic [ ] Other diagnosis [ ] Unable to determine In addition, please specify: Present on Admission (POA): [ x ] Yes [ ] No [ ] Unable to determine Physician Signature: Date/Time: For continuity of documentation, please document condition throughout progress notes and discharge summary. Thank You. To be completed by CDI/Coding staff for physician review: Present Clinical Indicators - Signs / Symptoms / Labs Results and Location in Medical Record [ x ] Ejection Fraction =20-25 % Echocardiogram [ x ] Admitted with increasing dyspnea Cosult Dr. Chapa pg.2 [ x ] BNP 1842.3H Laboratory [ x ] Bilateral pleural effusion with adjacent atelectasis vs infiltrates Chest X ray [ x ] chronic cough HP 09/16 [ x ] Chest:hyperresonant with wheezes and rhonchi HP 09/16 [ x ] Extremities: reveals traces of edema HP 09/16 Present Risk Factors Results and Location in Medical Record [ x ] Aortic stenosis H and P pg.1 [ x ] CAD H and P pg.1 [ x ] HTN H and P pg.1 [ x ] Dyslipidemia H and P pg.1 [ x ] Former smoker H and P pg.1 [ x ] COPD H and P pg.1 [ x ] Pneumonia H and P pg.2 [ x ] 79 years old male Consult 09/17 Present Treatments Results and Location in Medical Record [ x ] Chest X ray Chest X ray folder [ x ] Cardiology Consult Consult Dr. Chapa pg.2 [ x ] TTE Echocardiogram [ x ] Furosemide Lasix 20mg IV SEVERO CDS/Camera Tuning Engineer Signature: Omar Fontaine Phone #: ext [phone] Date: 09/21/19 This is a permanent part of the Medical Record [facility]
[2019-09-21] MEDS ORDERED: Aspirin 81 mg Enteric Coated Tablet PO SCH (09:00)
== END 2019-09-20 22:23 | disposition short-term general hospital (02) | DRG 314 ==
LOC: ERS 10:05 → IMCU/EMU 16:13 → T4-A 09-18 11:18 → CCU 09-20 17:10
PROVIDERS: ADMIT Internal Medicine; ATTEND Internal Medicine
PROC: 8E0ZXY6 Isolation (ICD-10-PCS; principal; 2019-09-17)
DX: T82.897A Other specified complication of cardiac prosthetic devices, implants and grafts, initial encounter (principal); J13 Pneumonia due to Streptococcus pneumoniae; J96.21 Acute and chronic respiratory failure with hypoxia; J44.0 Chronic obstructive pulmonary disease with (acute) lower respiratory infection; J44.1 Chronic obstructive pulmonary disease with (acute) exacerbation; I50.22 Chronic systolic (congestive) heart failure; Z20.828 Contact with and (suspected) exposure to other viral communicable diseases; F17.210 Nicotine dependence, cigarettes, uncomplicated; E78.5 Hyperlipidemia, unspecified; I11.0 Hypertensive heart disease with heart failure; I25.10 Atherosclerotic heart disease of native coronary artery without angina pectoris; Z99.81 Dependence on supplemental oxygen; Z95.2 Presence of prosthetic heart valve; Z79.51 Long term (current) use of inhaled steroids; Z79.890 Hormone replacement therapy; Z79.899 Other long term (current) drug therapy; Z88.8 Allergy status to other drugs, medicaments and biological substances; Z90.710 Acquired absence of both cervix and uterus; Z95.1 Presence of aortocoronary bypass graft; Y83.8 Other surgical procedures as the cause of abnormal reaction of the patient, or of later complication, without mention of misadventure at the time of the procedure; E03.9 Hypothyroidism, unspecified
CPT/HCPCS: 36415; 71045; 71250; 80048; 80053; 82550; 82553; 82728; 82805; 83605; 83880; 84484; 85025; 85379; 86140; 86769; 87040; 87635; 93005; 93306; 94640; 94760; 96365; 96367; 96375; J0456; J0696; J1100; J1650; J1940; J2060; J2920; J2930; J3475; J3490; J7050; J7611; J7620; U0002; U0003

== ENCOUNTER 2019-12-13 01:42 | Inpatient (IN) | payer MEDICARE, BC, OTHER ==
[2019-12-13 02:23] LABS: #Basophils 0.1 thou/uL (0.0-0.2); #Eosinphils 0.2 thou/uL (0.0-0.7); #Lymphocytes 1.3 thou/uL (1.20-3.40); #Monocytes 1.3 thou/uL (0.11-0.59); #Neutrophils 14.3 thou/uL (1.40-6.50); %Basophils 0.5 % (0.0-1.0); %Eosinophils 1.4 % (0.0-10.0); %Lymphocytes 7.4 % (21.0-51.0); %Monocytes 7.7 % (0.0-10.0); Hemoglobin 10.5 g/dL (12.0-16.0); Mean Corpuscular HGB CONC 32.3 g/dL (32.0-36.0); Mean Corpuscular Hemoglobin 32.1 pg (27.0-31.0); Mean Corpuscular Volume 99.5 fL (78.0-98.0); Mean Platelet Volume 7.8 fL (7.4-10.4); Platelet Count 291 thou/uL (130-400); Red Blood Cell (RBC) Count 3.28 mill/uL (4.20-5.40); White Blood Cell (WBC) Count 17.3 thou/uL (4.8-10.8)
[2019-12-13] MEDS ORDERED: Albuterol 200 PUFF (6.7GM INHALER) ONE (02:51)
[2019-12-13 03:00] LABS: Albumin 3.3 g/dL (3.4-4.8)
[2019-12-13 03:01] LABS: Chloride 100 mmol/L (98-107); Potassium 3.1 mmol/L (3.5-5.1); Sodium 142 mmol/L (136-145)
[2019-12-13 03:02] LABS: Calcium 9.1 mg/dL (7.8-10.44); Glucose 129 mg/dL (83-110)
[2019-12-13 03:03] LABS: Globulin 2.7 g/dL (2.4-3.5)
[2019-12-13 03:04] LABS: Anion Gap 13 mmol/L (10-20); Bilirubin, Total 0.6 mg/dL (0.2-1.2); Carbon Dioxide 32 mmol/L (23-31)
[2019-12-13 03:05] LABS: Alkaline Phosphatase 163 U/L (40-110)
[2019-12-13 03:06] LABS: BUN (Urea Nitrogen) 15 mg/dL (9.8-20.1); Calc. Creatinine Clearance 0 mL/min (70-130); Estimated GFR-MDRD 90
[2019-12-13 03:07] LABS: AST (SGOT) 35 U/L (5-34)
[2019-12-13 03:08] LABS: ALT (SGPT) 22 U/L (8-55)
[2019-12-13] MEDS ORDERED: Furosemide 40 MG/4 ML VIAL ONE (04:12)
[2019-12-13] MEDS ORDERED: Vancomycin 1 GM/200 ML BAG ONE (04:12)
[2019-12-13] MEDS ORDERED: Cefepime 2 GM VIAL ONE ×2 (04:12→04:25)
[2019-12-13] MEDS ORDERED: Acetaminophen 325 MG TAB PO PRN (05:28)
--- NOTE | 2019-12-13 05:37 | PDOC.HHP ---
Hospitalist HPI - History of Present Illness Shortness of breath History of Present Illness: 79-year-old woman with a history of chronic systolic heart failure, ejection fraction of 20 to 25%, history of aortic stenosis scheduled for TAVR, status post recent pacemaker insertion at [facility] presented emergency department with a complaint of progressive shortness of breath since her discharge after the pacemaker placement. Noted patient had a cardiac arrest before a TAVR could be done and had a pacemaker placed instead. Patient reports using increasing amount of oxygen recently. She states her shortness of breath became much worse yesterday and had to increase her oxygen to 4 L from a baseline of 3 L. She therefore presented to the emergency department where chest x-ray demonstrated bilateral pulmonary edema. She also has leukocytosis with a white cell count of 17,000. Patient endorsed nonproductive cough. She denied any fever. She denied any contact with the COVID patient. Initial troponin is negative but BNP is markedly elevated to 2500. Patient is admitted for further management of CHF exacerbation. Hospitalist ROS - Review of Systems Other: Except as documented, all other systems reviewed and negative. - Medication Medications: Current Medications Acetaminophen (Acetaminophen 325 Mg Tab) 650 mg PO Q4H PRN PRN Reason: Headache/Fever/Mild Pain (1-3) Enoxaparin Sodium (Enoxaparin Sodium 40 Mg/0.4 Ml Syringe) 40 mg SC 0900 YANIRA Furosemide (Furosemide 40 Mg/4 Ml Vial) 40 mg SLOW IVP 0600,1400 YANIRA Stop: 12/14/19 06:01 Spironolactone (Spironolactone 25 Mg Tab) 12.5 mg PO DAILY YANIRA - Exam General Appearance: awake alert General - other findings: Mild respiratory distress Eye: PERRL, anicteric sclera ENT: normocephalic atraumatic, no oropharyngeal lesions, moist mucosa Neck: supple, no thyromegaly, no lymphadenopathy, JVD (Elevated.) Heart: RRR, no murmur, no gallops Respiratory: no wheezes, no ronchi Respiratory - other findings: Diffuse bilateral crackles Gastrointestinal: soft, non-tender, non-distended, normal bowel sounds, no hepatomegaly, no splenomegaly Extremities: no cyanosis, 1+ LE edema Skin: normal turgor, no rashes Neurological: cranial nerve grossly intact, no weakness, no focal deficits Musculoskeletal: normal tone, normal strength Psychiatric: normal affect, normal behavior, A&O x 3 Hospitalist Results - Labs Result Diagrams: 12/13/19 02:15 12/13/19 02:40 Lab results: WBC 17.3 thou/uL (4.8-10.8) H 12/13/19 02:15 Hgb 10.5 g/dL (12.0-16.0) L 12/13/19 02:15 Hct 32.6 % (36.0-47.0) L 12/13/19 02:15 MCV 99.5 fL (78.0-98.0) H 12/13/19 02:15 Plt Count 291 thou/uL (130-400) 12/13/19 02:15 Neutrophils % 83.0 % (42.0-75.0) H 12/13/19 02:15 Sodium 142 mmol/L (136-145) 12/13/19 02:40 Potassium 3.1 mmol/L (3.5-5.1) L 12/13/19 02:40 Chloride 100 mmol/L (98-107) 12/13/19 02:40 Carbon Dioxide 32 mmol/L (23-31) H 12/13/19 02:40 BUN 15 mg/dL (9.8-20.1) 12/13/19 02:40 Creatinine 0.64 mg/dL (0.6-1.1) 12/13/19 02:40 Glucose 129 mg/dL (83-110) H 12/13/19 02:40 Calcium 9.1 mg/dL (7.8-10.44) 12/13/19 02:40 Total Bilirubin 0.6 mg/dL (0.2-1.2) 12/13/19 02:40 AST 35 U/L (5-34) H 12/13/19 02:40 ALT 22 U/L (8-55) 12/13/19 02:40 Alkaline Phosphatase 163 U/L (40-110) H 12/13/19 02:40 Troponin I 0.025 ng/mL (< 0.028) 12/13/19 02:15 B-Natriuretic Peptide 2538.9 pg/mL (0-100) H 12/13/19 02:15 Serum Total Protein 6.0 g/dL (6.0-8.3) 12/13/19 02:40 Albumin 3.3 g/dL (3.4-4.8) L 12/13/19 02:40 - Radiology Interpretation Chest x-ray Status: image reviewed by me (Bilateral pulmonary edema.) Hospitalist H&P A/P - Problem (1) Acute on chronic systolic heart failure Code(s): I50.23 - ACUTE ON CHRONIC SYSTOLIC (CONGESTIVE) HEART FAILURE Status: Acute (2) Leukocytosis Code(s): D72.829 - ELEVATED WHITE BLOOD CELL COUNT, UNSPECIFIED Status: Acute (3) Acute and chronic respiratory failure with hypoxia Code(s): J96.21 - ACUTE AND CHRONIC RESPIRATORY FAILURE WITH HYPOXIA Status: Acute (4) Aortic stenosis Code(s): I35.0 - NONRHEUMATIC AORTIC (VALVE) STENOSIS Status: Chronic - Plan Plan: Admit to telemetry. Trend troponin. Treat CHF exacerbation with IV Lasix. Monitor intake and outputs and daily weight. Continue heart failure medications. Blood pressure control. Cardiology consult Titrate oxygen Empiric antibiotics given leukocytosis. Follow cultures Test for COVID-19 is pending.
--- NOTE | 2019-12-13 05:46 | PDOC.FMACP ---
Advance Care Planning - Problem (1) Acute on chronic systolic heart failure Status: Acute Code(s): I50.23 - ACUTE ON CHRONIC SYSTOLIC (CONGESTIVE) HEART FAILURE (2) Leukocytosis Status: Acute Code(s): D72.829 - ELEVATED WHITE BLOOD CELL COUNT, UNSPECIFIED (3) Acute and chronic respiratory failure with hypoxia Status: Acute Code(s): J96.21 - ACUTE AND CHRONIC RESPIRATORY FAILURE WITH HYPOXIA - Note Summary: Advanced Care Planning was discussed. The diagnosis, prognosis and goals of care were discussed. Appropriate forms and documentation to accomplish the goals of care were discussed. All questions were answered. Patient wishes to remain full code. Her daughter Ms. Dejesus is medical decision-maker. She has no living will. Time Spent (mins): 16
[2019-12-13] MEDS ORDERED: Lorazepam 2 MG/ML VIAL ONE (05:51)
[2019-12-13 06:03] LABS: Troponin I 0.054 ng/mL (< 0.028)
[2019-12-13 06:10] LABS: SARS-CoV-2 NAA Rapid Test Not Detected (NotDetected)
--- NOTE | 2019-12-13 07:56 | CT ---
PRELIMINARY REPORT/[facility]/EMERGENCY AFTER HOURS PROCEDURE Chest CT with IV contrast History: Shortness of breath Comparison: None Findings: Cardiomegaly. Small pericardial effusion. Small bilateral pleural effusions. There is loculated fluid within both hemithoraces extending into the pulmonary fissures bilaterally. Mixed emphysematous and fibrotic changes noted throughout both lungs. There is superimposed abnormal thickening of the interstitial markings bilaterally. Dense bibasilar alveolar consolidation noted. Moderate nonspecific intrathoracic lymphadenopathy with diffuse edematous appearance of the mediastin al fat. Calcified nonaneurysmal thoracic aorta. No evidence of dissection. Moderate atherosclerotic changes . Patent left subclavian artery stent noted. No pulmonary embolism. Sensitivity for detection of small peripheral emboli is limited. No acute abnormality in the visualized upper abdomen. No acute osseous abnormalities. Impression: Severe CHF pattern with cardiomegaly, bibasilar consolidation and bilateral pulmonary edema superimpo sed upon a background of chronic mixed emphysematous and fibrotic changes. ELECTRONICALLY SIGNED BY: Earl Meng MD Dec 13, 2019 4:19:06 AM CDT This report is intended for review by the ordering physician only, in accordance of law. If you recei ve this report in error, please call [facility] at [phone]. FINAL REPORT Exam: CT angiogram of the chest HISTORY: Dyspnea. Shortness of breath. COMPARISON: None TECHNIQUE: CT angiogram of the chest is performed in the axial plane. Three-dimensional reformatted i mages are submitted for interpretation FINDINGS: Mediastinum: Increased soft tissue density throughout the mediastinum, worrisome for lymphadenopathy along with possible mediastinal fluid. HEART: Normal heart size. There is evidence of a small amount of pericardial fluid. Aorta: Atherosclerotic. Questionable aneurysm involving the suprarenal abdominal aorta. There is a st ent at the origin of the left subclavian artery. There is a stent at the root of the aorta. Upper solid abdominal viscera: No abnormality enhancement. Trachea and central bronchi: Patent Pleural spaces: There is evidence of pleural fluid, with components of loculated fluid along the left and right major fissures. Lung parenchyma: Patchy groundglass opacities, septal thickening and consolidation likely representin g changes from volume overload. Superimposed pneumonia/aspiration cannot be excluded. Additional fibrotic changes are suggested in the middle lobe and lingula. Pneumothorax: None Osseous structures: No lytic or blastic lesions Pulmonary arteries: Adequate contrast opacification pulmonary arterial system to the level of segment al arteries. No filling defect to suggest pulmonary embolism IMPRESSION: 1. This report is in agreement with initial report by [facility]. 2. Congestive heart failure. Superimposed pneumonia and/or aspiration cannot be excluded. 3. There appear to be fibrotic changes involving the lung parenchyma. 4. Lymphadenopathy and fluid in the mediastinum, nonspecific. Transcribed Date/Time: 12/13/2019 7:59 AM
--- NOTE | 2019-12-13 07:59 | RAD ---
Portable frontal chest radiograph: 12/13/2019 COMPARISON: 09/20/2019 HISTORY: Shortness of breath FINDINGS: No pneumothorax is present. There is a dual lead transvenous pacing device. Diffuse nonspecific increased linear interstitial densities are noted, similar when compared to prior chest radiograph. Superimposed nonspecific airspace disease is noted within bilateral perihilar regions and both lung bases, right greater than left, worsened when compared to 09/20/2019 and new whe n compared to 12/27/2018. There are small/moderate bilateral pleural effusions which appear more prominent than on prior imaging as well. IMPRESSION: Diffuse nonspecific interstitial prominence with superimposed worsening interstitial and alveolar opacity with associated bilateral pleural effusions. Findings suggest pulmonary edema and/or multifocal infectious pneumonitis superimposed on chronic interstitial disease. Short-term fol low-up imaging advised following treatment to document resolution
[2019-12-13 08:36] LABS: Troponin I 0.064 ng/mL (< 0.028)
[2019-12-13] MEDS ORDERED: Iopamidol-370 76% 500 ML 1 ML ONE (09:04)
[2019-12-13] MEDS: Spironolactone 25 MG TAB PO SCH (09:23)
[2019-12-13] MEDS: Furosemide 40 MG/4 ML VIAL SLOW IVP SCH ×2 (09:23→15:11)
[2019-12-13] MEDS: Enoxaparin Sodium 40 MG/0.4 ML SYRINGE SC SCH (09:23)
[2019-12-13] MEDS ORDERED: FLU VACC QS2020-21(65YR UP)/PF 240 MCG/0.7 ML SYRINGE IM ONE (10:00)
[2019-12-13] MEDS ORDERED: Potassium Chloride 20 MEQ TAB PO SCH (10:15)
[2019-12-13] MEDS ORDERED: Diphenoxylate HCl/Atropine Tablet PO PRN (13:39)
[2019-12-13] MEDS ORDERED: Albuterol Sulfate 1.25 MG/3 ML NEB NEB PRN (13:43)
[2019-12-13] MEDS ORDERED: Mometasone 200 MCG/Formoterol 5 MCG 120 PUFF INHALER INH SCH (14:00)
[2019-12-13] MEDS ORDERED: Lorazepam 1 MG TAB PO SCH (14:45)
[2019-12-13] MEDS: Aspirin 81 mg Enteric Coated Tablet PO SCH (15:11)
--- NOTE | 2019-12-13 16:28 | RAD ---
EXAM: CHEST ONE VIEW: 12/13/19 HISTORY: Re-evaluate pleural effusions. COMPARISON: 12/13/19. FINDINGS: Left ICD. Monitor leads overlie and somewhat obscure the chest. Evidence for bilateral pleural effusi ons including some loculated fluid particularly in the right fissure. Prominent increased bronchovasc ular markings bilaterally with evidence for interstitial and reticular nodular parenchymal disease, e vidence for acute and/or chronic extensive interstitial lung disease. Minimal cardiomegaly. IMPRESSION: Overall stable appearing interstitial parenchymal changes bilaterally with cardiomegaly. Decrease in pleural effusions with loculation in the fissures, particularly in the right mid lower patrick ng zone. Continue short term follow-up. POS: RRE
[2019-12-13] MEDS ORDERED: Benzonatate 100 MG CAP PO PRN (18:14)
--- NOTE | 2019-12-13 18:16 | PDOC.EVN ---
Event Note - Event Note Event Note: The patient states her chest pain and shortness of breath have improved. She has a chronic smokers cough. She states that she is scheduled for a aortic valve replacement procedure on Wednesday at [facility] in [place] and requests to be transferred there She states she was drinking 6 large glasses of water daily, was following a low salt diet. She was taking lasix 20 mg daily and spironolactone at home She states she has history of chronic bronchitis which developed into COPD . She takes albuterol at home and follows General: alert, awake, oriented times three CVS; RRR, no murmurs, rubs, gallops Lungs: CTAB Abdomen: + BS, soft, nontender, nondistended Ext: no edema Labs: K 3.1, creatinine normal Imaging: CTA chest: small pericardial effusion. Small bilateral effusions. Loculated fluid in both hemitohoraces. Pulmonary edema with fibrotic changes. This is a79 year old female patient with history of severe aortic stenosis presenting with decompensated heart failure #Acute decompensated systolic CHF #Severe aortic stenosis - EF 40-45%, ECHO shows severe and moderate MR - continue IV lasix bid - cardiology has been consulted - will attempt transfer to [facility] in [place] #Hypokalemia - potassium 3.1, will recheck potassium #Transaminitis - likely from heart failure - will monitor #Possible loculated pleural effusion #Pulmonary fibrosis - noted on CT scan. Will consult pulmonary. Anemia - Hb 10, check B12/folate/ TSH tomorrow Type II NSTEMI - likely from CHF. No chest pain currently COPD - will resume inhalers and dulera inhaler
[2019-12-13] MEDS: Mometasone 200 MCG/Formoterol 5 MCG 120 PUFF INHALER INH SCH (18:53)
[2019-12-13 19:12] LABS: Potassium 3.5 mmol/L (3.5-5.1)
--- NOTE | 2019-12-13 20:08 | CON ---
DATE OF CONSULTATION: HISTORY OF PRESENT ILLNESS: The patient is a 79-year-old woman who presents with increasing dyspnea. The patient has a history of severe aortic stenosis. The patient has previously had a TAVR in 2016. She was scheduled to undergo repeat TAVR when she was admitted in August of this year. The patient was in severe respiratory distress. She was transferred to [place] where she went another attempted TAVR. Unfortunately, she had a cardiac arrest and a pacemaker was placed. The patient was scheduled to undergo repeat TAVR next week. The patient presents with increasing dyspnea. She denies having any chest discomfort. PAST MEDICAL HISTORY: 1. History of aortic stenosis. 2. History of coronary artery disease. 3. History of congestive heart failure. 4. Hypertension. PAST SURGICAL HISTORY: Tonsillectomy and lumpectomy. SOCIAL HISTORY: Former smoker. ALLERGIES: MONTELUKAST. MEDICATIONS: See nursing list. PHYSICAL EXAMINATION: GENERAL/VITAL SIGNS: This is a pale woman, in no acute distress with a blood pressure of 119/54. NECK: Showed no jugular venous distention. LUNGS: Have crackles in both lung cotter. HEART: Regular rate and rhythm. Normal S1 and S2 with a 2/6 systolic murmur. ABDOMEN: Nondistended. EXTREMITIES: Showed mild bilateral edema. LABORATORY DATA: White blood count 17.3, hemoglobin 10.5, hematocrit 32.6, and platelets are 291. Sodium is 142, potassium 3.1, chloride 100, bicarb 32, BUN 15, creatinine 0.64, glucose 129. Troponin was 0.054. BNP 2538. EKG normal sinus rhythm with a left bundle-branch block. Chest x-ray revealed diffuse bilateral pulmonary edema. IMPRESSION: 1. Congestive heart failure. 2. Critical aortic stenosis. 3. History of transcatheter aortic valve replacement. 4. History of coronary artery disease. 5. History of pacemaker placement. This patient presents with a mild congestive heart failure exacerbation. The patient is being diuresed with Lasix. The patient has been restarted on aspirin. We will check the patient's echocardiogram. We will follow this patient with you through her hospitalization. Job ID: [id number] [facility]
[2019-12-13] MEDS: Lorazepam 1 MG TAB PO SCH (20:17)
[2019-12-13] MEDS: Atorvastatin Calcium 40 MG TAB PO SCH (20:17)
--- NOTE | 2019-12-13 20:48 | CON ---
DATE OF CONSULTATION: 12/13/2019 HISTORY OF PRESENT ILLNESS: Yuridia Goodman is a very pleasant 79-year-old female. She was admitted with shortness of breath and lower extremity swelling. I have reviewed a fairly large volume of medical records from last year and this year. She has TAVR in place. It has failed and she has recurrent extremely critical aortic stenosis. She tells me that she took a 65,000 dollar helicopter ride to get the valve replaced. She recently was on the schedule for valve replacement, but coded during the procedure and had to have a pacemaker placed. She is on the schedule again to have a redo TAVR next week. I was consulted for pulmonary fibrosis and pleural effusions. She already reports that she was diuresed significantly and feels much better. PAST MEDICAL HISTORY: Remarkable for; 1. COPD. 2. History of 3 coronary stents. 3. History of hypertension. 4. Lipid disorder. 5. DJD. 6. History of irritable bowel. 7. Status post hysterectomy. 8. History of tonsillectomy. 9. History of lumpectomy. 10. History of smoking for 30 years, but only 15 pack-year. She reports intolerance to Singulair. MEDICATIONS: Reviewed. FAMILY HISTORY: Negative for lung disease in early age. PHYSICAL EXAMINATION: GENERAL: She is afebrile. Heart rate 79, respiratory rate 21, oximetry is 97%, blood pressure 119/54. HEENT: Pupils are equal. Sclerae are anicteric. NECK: Supple. LUNGS: Remarkable for crackles in both lung bases. HEART: Regular rhythm. S1, S2 are normal. She has a very faint aortic outflow murmur, this may be a 1/6 murmur. ABDOMEN: Soft and nontender. EXTREMITIES: Remarkable for lower extremity edema. LABORATORY DATA: White count 17.3, hemoglobin 10.5, platelets 291. Sodium 142, potassium 3.1, chloride 100, bicarb 32, BUN 15, creatinine 0.64. She had a CT scan done in the emergency room that shows finding suggestive of pseudotumors on the right . She has small bilateral effusions. She has a diffuse increase in interstitial markings consistent with pulmonary edema. IMPRESSION: Critical aortic stenosis, leading to all of her pulmonary issues at this time. I found the film from October of last year that was essentially normal other than maybe being a little bit hyperinflated. I doubt she has pulmonary fibrosis. I do not feel that her pleural fluid needs to be drained. She simply in my opinion needs to have her aortic valve replaced and also to be gently diuresed. This is a 70 min visit with greater than 50% spent on unit with coordination of care. Job ID: [id number] MTDD
[2019-12-14] MEDS ORDERED: Cepastat Lozenges 1 LOZ PO PRN (01:53)
[2019-12-14 05:20] LABS: #Basophils 0.1 thou/uL (0.0-0.2); #Eosinphils 0.3 thou/uL (0.0-0.7); #Lymphocytes 1.5 thou/uL (1.20-3.40); #Monocytes 1.1 thou/uL (0.11-0.59); #Neutrophils 7.1 thou/uL (1.40-6.50); %Basophils 0.5 % (0.0-1.0); %Eosinophils 3.3 % (0.0-10.0); %Lymphocytes 15.1 % (21.0-51.0); %Monocytes 11.3 % (0.0-10.0); %Neutrophils 69.8 % (42.0-75.0); Hemoglobin 10.4 g/dL (12.0-16.0); Mean Corpuscular HGB CONC 32.3 g/dL (32.0-36.0); Mean Corpuscular Hemoglobin 31.9 pg (27.0-31.0); Mean Corpuscular Volume 98.6 fL (78.0-98.0); Mean Platelet Volume 8.2 fL (7.4-10.4); Platelet Count 238 thou/uL (130-400); RBC Distribution Width 13.2 % (11.5-14.5); Red Blood Cell (RBC) Count 3.28 mill/uL (4.20-5.40); White Blood Cell (WBC) Count 10.1 thou/uL (4.8-10.8)
[2019-12-14 05:41] LABS: Anion Gap 11 mmol/L (10-20); BUN (Urea Nitrogen) 15 mg/dL (9.8-20.1); Calc. Creatinine Clearance 69 mL/min (70-130); Calcium 8.3 mg/dL (7.8-10.44); Carbon Dioxide 35 mmol/L (23-31); Chloride 100 mmol/L (98-107); Estimated GFR-MDRD 81; Glucose 101 mg/dL (83-110); Magnesium 1.5 mg/dL (1.6-2.6); Potassium 3.1 mmol/L (3.5-5.1); Sodium 143 mmol/L (136-145)
[2019-12-14 05:58] LABS: Thyroid Stimulating Hormone 1.8149 uIU/mL (0.35-4.94)
[2019-12-14] MEDS ORDERED: Furosemide 40 MG/4 ML VIAL SLOW IVP SCH (06:00)
[2019-12-14] MEDS: Mometasone 200 MCG/Formoterol 5 MCG 120 PUFF INHALER INH SCH ×2 (06:58→19:06)
[2019-12-14] MEDS ORDERED: Potassium Chloride 20 MEQ TAB PO SCH (08:30)
[2019-12-14] MEDS ORDERED: Spironolactone 25 MG TAB PO SCH ×2 (09:47→10:30)
[2019-12-14] MEDS: Lorazepam 1 MG TAB PO SCH ×2 (09:53→20:26)
[2019-12-14] MEDS: Aspirin 81 mg Enteric Coated Tablet PO SCH (09:53)
[2019-12-14] MEDS: Enoxaparin Sodium 40 MG/0.4 ML SYRINGE SC SCH (09:53)
[2019-12-14] MEDS: Magnesium Oxide 400 MG TAB PO SCH ×2 (09:53→10:02)
[2019-12-14] MEDS ORDERED: Dextrose 50% Abboject 50 ML SYRINGE ONE (10:17)
[2019-12-14] MEDS: Spironolactone 25 MG TAB PO SCH (11:24)
--- NOTE | 2019-12-14 19:01 | PDOC.HOSPP ---
- Subjective Encounter Date: 12/14/19 Encounter Time: 11:00 Subjective: THe patient states she feels better today. She does have little more energy and was able to ambulate better today with less shortness of breath. She denied significant cough I explained to patient that [facility] in [place] has no beds available and recommended that she go home prior to surgery. Patient states that she wouldn't mind but her daughter would not feel comfortable with that plan of going home first and would throw a fit. I tried to call daughter, however she did not answer her phone She states she is not interested in any type of rehab prior to her surgery - Objective Vital Signs & Weight: Vital Signs (12 hours) Temp Pulse Pulse Pulse Resp BP BP 12/14/19 16:21 98.6 F 71 18 12/14/19 11:21 98.2 F 65 16 12/14/19 10:21 70 73 154/65 H 119/52 L 12/14/19 07:30 12/14/19 07:27 98.1 F 96 16 BP Pulse Ox 12/14/19 16:21 145/67 H 98 12/14/19 11:21 120/86 96 12/14/19 10:21 12/14/19 07:30 94 L 12/14/19 07:27 137/63 96 Weight Weight 143 lb 3.2 oz I&O: 12/13/19 12/14/19 12/15/19 06:59 06:59 06:59 Intake Total 71408 800 Output Total 1050 1450 Balance 02269 -650 Result Diagrams: 12/14/19 04:22 12/14/19 04:22 Hospitalist ROS - Review of Systems Constitutional: denies: fever, chills - Medication Medications: Active Medications Generic Name Dose Route Start Last Admin Trade Name Freq PRN Reason Stop Dose Admin Aspirin 81 mg 12/13/19 09:00 12/14/19 09:53 Aspirin 81 Mg Enteric Coated Tablet PO 81 mg DAILY YANIRA Administration Atorvastatin Calcium 40 mg 12/13/19 21:00 12/13/19 20:17 Atorvastatin Calcium 40 Mg Tab PO 40 mg HS YANIRA Administration Benzonatate 100 mg 12/13/19 18:14 12/13/19 18:36 Benzonatate 100 Mg Cap PO 100 mg Q4H PRN Administration Cough Enoxaparin Sodium 40 mg 12/13/19 09:00 12/14/19 09:53 Enoxaparin Sodium 40 Mg/0.4 Ml Syringe SC 40 mg 0900 YANIRA Administration Lorazepam 1 mg 12/13/19 21:00 12/14/19 09:53 Lorazepam 1 Mg Tab PO 1 mg BID YANIRA Administration Metoprolol Succinate 25 mg 12/14/19 09:00 12/14/19 09:54 Metoprolol Succinate Xl 25 Mg Tab PO 25 mg DAILY YANIRA Administration Mometasone Furoate/Formoterol Fumar 1 puff 12/13/19 18:30 12/14/19 06:58 Mometasone 200 Mcg/Formoterol 5 Mcg 120 Puff Inhaler INH 1 puff BID-RT YANIRA Administration Sodium Chloride 10 ml 12/13/19 21:00 12/14/19 09:54 Flush - Normal Saline 10 Ml Syringe IVF 10 ml Q12HR YANIRA Administration Sodium Chloride 10 ml 12/13/19 10:00 12/14/19 06:06 Flush - Normal Saline 10 Ml Syringe IVF 10 ml PRN PRN Administration Saline Flush - Exam General Appearance: NAD, awake alert General - other findings: 2L nasal cannula Eye: PERRL, anicteric sclera ENT: normocephalic atraumatic, no oropharyngeal lesions Neck: no JVD Heart: RRR, no murmur, no gallops, no rubs Respiratory: CTAB, no wheezes, no rales, no ronchi Gastrointestinal: soft, non-tender, non-distended, normal bowel sounds Extremities: no cyanosis, no clubbing, no edema Skin: normal turgor, no lesions, no rashes Neurological: cranial nerve grossly intact, normal sensation to touch, no weakness Hosp A/P - Plan Labs: K 3.1, creatinine normal Imaging: CTA chest: small pericardial effusion. Small bilateral effusions. Loculated fluid in both hemitohoraces. Pulmonary edema with fibrotic changes. This is a79 year old female patient with history of severe aortic stenosis presenting with decompensated heart failure #Acute decompensated systolic CHF #Severe aortic stenosis - EF 40-45%, ECHO shows severe and moderate MR -cardiology consulted, lasix weaned to 40 mg IV daily -patient declined at [facility] because no beds - appears to be at her baseline oxygen, but does not want to go home. Called daughter without luck #Hypokalemia - potassium 3.1, will recheck potassium #Transaminitis - likely from heart failure - will monitor #Possible loculated pleural effusion #Pulmonary fibrosis - noted on CT scan. Pulmonary consulted, recommended no intervention and thought it was more heart failur erelated Anemia - Hb 10, B12/folate/TSH normal Type II NSTEMI - likely from CHF. No chest pain currently COPD - continue home inhalers
[2019-12-14] MEDS: Atorvastatin Calcium 40 MG TAB PO SCH (20:26)
[2019-12-14] MEDS ORDERED: Ondansetron ODT 4 MG TAB PO SCH (22:15)
[2019-12-15 05:20] LABS: Anion Gap 12 mmol/L (10-20); BUN (Urea Nitrogen) 17 mg/dL (9.8-20.1); Calc. Creatinine Clearance 73 mL/min (70-130); Calcium 8.5 mg/dL (7.8-10.44); Carbon Dioxide 33 mmol/L (23-31); Chloride 100 mmol/L (98-107); Estimated GFR-MDRD 87; Glucose 96 mg/dL (83-110); Magnesium 1.6 mg/dL (1.6-2.6); Potassium 3.4 mmol/L (3.5-5.1); Sodium 142 mmol/L (136-145)
[2019-12-15] MEDS: Mometasone 200 MCG/Formoterol 5 MCG 120 PUFF INHALER INH SCH (07:15)
[2019-12-15] MEDS: Enoxaparin Sodium 40 MG/0.4 ML SYRINGE SC SCH (08:43)
[2019-12-15] MEDS: Aspirin 81 mg Enteric Coated Tablet PO SCH (08:43)
[2019-12-15] MEDS: Lorazepam 1 MG TAB PO SCH (08:45)
[2019-12-15] MEDS ORDERED: Spironolactone 25 MG TAB PO SCH (09:00)
[2019-12-15] MEDS ORDERED: Furosemide 40 MG/4 ML VIAL SLOW IVP SCH (09:00)
[2019-12-15 12:56] VITALS: BMI 26.8
[2019-12-15] MEDS ORDERED: Ibuprofen 200 MG TAB PO SCH (13:15)
[2019-12-15] MEDS ORDERED: Potassium Chloride 20 MEQ TAB PO SCH (14:45)
--- NOTE | 2019-12-15 15:15 | RAD ---
Right knee:4 views INDICATIONS:Knee pain COMPARISON:None FINDINGS: Loss of medial joint space. Moderate degenerative change with marginal osteophytes seen medially and laterally. Spurring from the tibial spines. Spurring from the posterior patella. No joint effusion. No fracture. No soft tissue abnormality. IMPRESSION: Moderate degenerative change
--- NOTE | 2019-12-15 15:16 | RAD ---
Left knee:4 views INDICATIONS:Knee pain COMPARISON:None FINDINGS: Loss of lateral joint space. Moderate degenerative change with moderate marginal osteophytes laterall y. Spurring from the patella. No joint effusion. No soft tissue abnormality. IMPRESSION: Moderate degenerative change
[2019-12-15 15:45] VITALS: BP 121/60; TEMP 98.1
[2019-12-16] MEDS ORDERED: Furosemide 40 MG TAB PO SCH (07:30)
--- NOTE | 2019-12-16 10:37 | EKG ---
Test Reason : SOB Blood Pressure : / mmHG Vent. Rate : 084 BPM Atrial Rate : 084 BPM P-R Int : 208 ms QRS Dur : 164 ms QT Int : 418 ms P-R-T Axes : 061 021 218 degrees QTc Int : 493 ms Normal sinus rhythm Left bundle branch block Abnormal ECG Confirmed by RIKY VANESSA ([id number]), staff editor HARMONY MAIER ([id number]) on 12/16/2019 10:37:28 AM Referred By: Confirmed By:RIKY VANESSA
--- NOTE | 2019-12-17 00:08 | DIS ---
DATE OF ADMISSION: 12/13/2019 DATE OF DISCHARGE: 12/15/2019 DISCHARGE DIAGNOSES: 1. Acute decompensated systolic heart failure secondary to severe aortic stenosis. 2. Hypokalemia. 3. Transaminitis. 4. Mild loculated pleural effusion with possible pulmonary fibrosis. 5. Anemia. 6. Type 2 [id number] myocardial infarction. CONSULTATIONS: 1. Dr. Aden Chapa with Cardiology. 2. Dr. Kelechi Shepard with Pulmonary Critical Care. HISTORY OF PRESENT ILLNESS: This is a 79-year-old female with a past medical history of severe aortic stenosis who presented to the emergency room with worsening shortness of breath on exertion. Patient was recently discharged from [facility] [place] and had a pacemaker placed after arresting during TAVR procedure. After discharge she was drinking 5-6 large glasses of water a day and was taking lasix 20 mg daily. When she presented to the emergency room, her vitals were normal. She had white count of 17.3 and a BNP of 2538. Chest x-ray showed bilateral pulmonary edema. She was admitted to the hospital for further workup. HOSPITAL COURSE: Acute systolic heart failure secondary to severe aortic stenosis: Patient was initially started on Lasix 40 mg IV b.i.d. The following day, she was transitioned to Lasix 40 mg IV daily. Echocardiogram 12/12 showed an EF of 40% to 45% with severe aortic stenosis with a valve area of 0.39 cm2. Patient was weaned to her baseline oxygen requirement of 2 L nasal cannula. She was seen by cardiac rehab and ambulated without any significant desaturations. We originally tried to transfer the patient to [facility] [place] due to her upcoming TAVR on 12/18, however there were no beds available. She was discharged with Lasix 40 mg daily and her fluid restriction was reduced to 1.5 L. She was also discharged on aspirin. COPD: Patient did report a chronic cough, was productive. She does have a rescue inhaler at home, but was prescribed Dulera on discharge. Her CTA of her chest showed no PE, but did show question of loculated pleural effusion versus pulmonary fibrosis. Pulmonary was consulted and did not think she had fibrosis or effusion. She should follow up with her lung doctor in a week. Transaminitis: Patient has mildly elevated AST of 35, alkaline phosphatase 163, and ALT of 22. This is possibly secondary to heart failure. She was diuresed. Consider repeat LFTs in a week. Hypokalemia: Patient's potassium was 3.4 at the time of discharge. This is likely secondary to diuretic use. This was replaced. Consider a repeat potassium level in a week. Anemia: Patient's hemoglobin was 10.4. Her MCV was 98. B12, folate, and TSH were checked, which were normal. Knee pain: Patient reported bilateral knee pain, which made it difficult for her to walk and use the toilet. Bilateral knee x-rays were done, which showed moderate degenerative changes. DISCHARGE PHYSICAL EXAMINATION: VITAL SIGNS: Temperature 98.1, heart rate 63, respiratory rate 16, O2 saturation 98% on 2 L nasal cannula, blood pressure 112/54. GENERAL: Patient is alert, awake, and oriented x3. CV: Regular rate and rhythm with no murmurs, rubs, or gallops. Very difficult to hear the aortic valve murmur. LUNGS: Diminished bilaterally due to COPD. ABDOMEN: Positive bowel sounds, soft, nontender, nondistended. EXTREMITIES: No edema. LABORATORY DATA: CBC 12/13: White count 10.1, hemoglobin 10.4, hematocrit 32.3, platelet count 238. BMP 12/14: Normal, except for potassium of 3.4, and bicarb was 35. Magnesium level: 1.6. LFTs 12/12: AST 35, ALT 22, alkaline phosphatase 163. Troponin I: 0.025, 0.054, 0.064. Vitamin B12: 877. Folate: 16.3. TSH: 1.8. COVID PCR 12/12: Negative. IMAGING: Chest x-ray 12/12: Diffuse nonspecific interstitial prominence of superimposed worsening initial valvuloplasty with cystic bilateral pleural effusion suggesting pulmonary edema or multifocal infectious pneumonitis. CTA thorax 12/12: Congestive heart failure. Superimposed pneumonia or aspiration cannot be excluded. There is fibrotic changes involving the lung parenchyma. Lymphadenopathy including mediastinum. Nonspecific. Chest x-ray 12/12: Decreasing pleural effusions and loculation, particularly in the right mid lower lung zone. Initial parenchymal changes bilaterally with cardiomegaly. Knee x-ray 12/14: Moderate degenerative change. Echo 12/12: EF 40% to 45%. Diastolic dysfunction. Severe . AR. Moderate MR. Mild to moderate TR. DISCHARGE MEDICATIONS: New prescriptions: 1. Dulera one puff inhaled b.i.d. 2. Aspirin 81 mg p.o. daily. 3. Lasix 40 mg p.o. daily. 4. Metoprolol 25 mg p.o. daily. Continued medications: 1. Spironolactone 25 mg p.o. daily. 2. Diphenoxylate atropine 1 each p.o. t.i.d. 3. Simethicone 125 mg p.o. daily. 4. Atorvastatin 40 mg p.o. at bedtime. 5. Lorazepam 1 mg p.o. q.i.d. 6. Pepcid 20 mg p.o. daily. 7. Levothyroxine 75 mcg p.o. daily. 8. Tessalon 100 mg p.o. t.i.d. DISCHARGE CONDITION: Stable. DISPOSITION: Home. DISCHARGE INSTRUCTIONS: Patient should follow up with her PCP in a week and a project production engineer in a week. Please reduce fluid intake to 1.5 L. Follow up with Terry De La Rosa for scheduled surgery. Patient was also told that lisinopril can cause a cough and consider switching to an alternative medication for this, such as losartan. Job ID: [id number] MTDD
== END 2019-12-15 17:50 | disposition home or self-care (01) | DRG 280 ==
LOC: ERS 01:42 → 2NO 08:33
PROVIDERS: ADMIT Internal Medicine; ATTEND Internal Medicine
DX: I50.23 Acute on chronic systolic (congestive) heart failure (principal); I21.A1 Myocardial infarction type 2; J96.21 Acute and chronic respiratory failure with hypoxia; E87.6 Hypokalemia; Z20.828 Contact with and (suspected) exposure to other viral communicable diseases; R74.01 Elevation of levels of liver transaminase levels; J84.10 Pulmonary fibrosis, unspecified; D64.9 Anemia, unspecified; M25.562 Pain in left knee; M25.561 Pain in right knee; I35.0 Nonrheumatic aortic (valve) stenosis; E78.5 Hyperlipidemia, unspecified; E03.9 Hypothyroidism, unspecified; F41.9 Anxiety disorder, unspecified; I10 Essential (primary) hypertension; F32.9 Major depressive disorder, single episode, unspecified; J44.9 Chronic obstructive pulmonary disease, unspecified; Z28.21 Immunization not carried out because of patient refusal; Z95.5 Presence of coronary angioplasty implant and graft; Z95.2 Presence of prosthetic heart valve; Z87.891 Personal history of nicotine dependence; Z88.8 Allergy status to other drugs, medicaments and biological substances
CPT/HCPCS: 36415; 71045; 71275; 80048; 80053; 82607; 82746; 83735; 83880; 84132; 84443; 84484; 85025; 87040; 93005; 93306; 93798; 94664; 94760; 96365; 96367; 96375; J0692; J1650; J1940; J1956; J2060; J3370; Q0162; Q9967; U0002

== ENCOUNTER 2020-02-09 17:50 | Inpatient (IN) | payer MEDICARE, BC ==
[2020-02-09 18:20] LABS: #Eosinphils 0.1 thou/uL (0.0-0.7); #Lymphocytes 0.8 thou/uL (1.20-3.40); #Monocytes 0.8 thou/uL (0.11-0.59); #Neutrophils 6.6 thou/uL (1.40-6.50); %Basophils 0.6 % (0.0-1.0); %Eosinophils 1.7 % (0.0-10.0); %Lymphocytes 9.8 % (21.0-51.0); %Monocytes 9.8 % (0.0-10.0); %Neutrophils 78.1 % (42.0-75.0); Hemoglobin 8.6 g/dL (12.0-16.0); Mean Corpuscular HGB CONC 30.2 g/dL (32.0-36.0); Mean Corpuscular Volume 99.3 fL (78.0-98.0); Mean Platelet Volume 7.9 fL (7.4-10.4); Platelet Count 246 thou/uL (130-400); RBC Distribution Width 17.4 % (11.5-14.5); Red Blood Cell (RBC) Count 2.85 mill/uL (4.20-5.40); White Blood Cell (WBC) Count 8.4 thou/uL (4.8-10.8)
--- NOTE | 2020-02-09 18:35 | RAD ---
PORTABLE CHEST ONE VIEW: 02/09/20 at 6:19 p.m. HISTORY: Dyspnea. FINDINGS/IMPRESSION: Comparison is made of the exam of 12/13/19. A new patchy opacity is seen in the left upper lobe suspicious for pneumonia. Chronic changes in the lung cotter are otherwise again noted including a loculated right pleural effusion in the right fissu re. No pneumothoraces are seen. POS: MZA
[2020-02-09 18:36] LABS: ALT (SGPT) 15 U/L (8-55); AST (SGOT) 19 U/L (5-34); Albumin 2.5 g/dL (3.4-4.8); Alkaline Phosphatase 69 U/L (40-110); BUN (Urea Nitrogen) 28 mg/dL (9.8-20.1); Bilirubin, Total 0.3 mg/dL (0.2-1.2); CK (CPK) 22 U/L (29-168); Calc. Creatinine Clearance 0 mL/min (70-130); Calcium 8.6 mg/dL (7.8-10.44); Globulin 2.8 g/dL (2.4-3.5); Glucose 102 mg/dL (83-110); Protein, Total 5.3 g/dL (6.0-8.3)
[2020-02-09 18:46] LABS: Anion Gap 15 mmol/L (10-20); Carbon Dioxide 36 mmol/L (23-31); Chloride 94 mmol/L (98-107); Potassium 4.4 mmol/L (3.5-5.1); Sodium 141 mmol/L (136-145)
[2020-02-09] MEDS ORDERED: Cefepime 2 GM VIAL ONE (20:44)
[2020-02-09] MEDS ORDERED: Levofloxacin 500 mg/D5W 100 ml Premix Bag ONE (20:44)
[2020-02-09] MEDS ORDERED: Vancomycin 1 GM/200 ML BAG ONE (21:35)
--- NOTE | 2020-02-09 22:26 | PDOC.BPN ---
- Brief Progress Note [id number] dictated
[2020-02-09 22:37] LABS: Vancomycin, Trough 18.8 ug/mL
[2020-02-09 22:45] LABS: Troponin I 0.057 ng/mL (< 0.028)
[2020-02-10 01:23] LABS: Troponin I 0.056 ng/mL (< 0.028)
--- NOTE | 2020-02-10 01:34 | HP ---
CHIEF COMPLAINT: Shortness of breath. HISTORY OF PRESENT ILLNESS: Ms. Goodman is a 79-year-old female, presents to the emergency room with shortness of breath and low oxygen saturation. It was reported that patient's oxygen saturation was 64% on room air. The patient was placed on nonrebreather. EMS told the patient had STEMI, but it was ventricular paced rhythm. The patient has a history of COVID pneumonia, but no longer on any precautions. The patient does have a history of aortic valve stenosis with aortic valve replacement, cardiac stents, hypertension, hyperlipidemia, irritable bowel syndrome, pacemaker, and hypothyroidism. Workup in the emergency room including chest x-ray showed possible new left upper lobe opacity suspicious for pneumonia. Lab work, the patient had WBC count of 8.4, hemoglobin 8.6, platelets 246. Sodium 141, potassium 4.4, BUN 28, creatinine 0.5. Troponin 0.05. BNP is elevated at 1258. The patient was on IV antibiotics for suspicious of pneumonia. The patient was placed on oxygen. Patient is being admitted to hospital for further management. PAST MEDICAL HISTORY: As mentioned above in history of present illness. PAST SURGICAL HISTORY: 1. Heart stents x2. 2. Aortic valve procedure. 3. Partial hysterectomy. 4. Tonsillectomy. 5. Lumpectomy. PAST PSYCHIATRIC HISTORY: Anxiety and depression. SOCIAL HISTORY: Denies alcohol use. She is a former cigarette smoker. FAMILY HISTORY: Reviewed, noncontributory. ALLERGIES: ALLERGIC TO SINGULAIR, [place]. HOME MEDICATIONS: See home medication reconciliation form for updated medications. PHYSICAL EXAMINATION: GENERAL: The patient is awake, alert, in moderate distress, anxious. VITAL SIGNS: Blood pressure is 150/90, respiratory rate is 16, pulse is 95, temperature is 98, oxygen saturation on room air was 77%, currently 94% on 4 L/minute nasal cannula. HEAD AND NECK: Normocephalic, atraumatic. NECK: Supple. CHEST: Few basilar crackles. HEART: S1, S2. Regular. ABDOMEN: Soft, nontender. NEUROLOGIC: Awake, alert, anxious. PSYCH: Unable to assess. EXTREMITIES: No clubbing, no cyanosis. GENITOURINARY: No suprapubic tenderness. No flank tenderness. LABORATORY DATA: As mentioned above in history of present illness. IMAGING STUDIES: As mentioned above in history of present illness. ASSESSMENT AND PLAN: 1. Acute hypoxic respiratory failure. 2. Pneumonia, ? healthcare associated. 3. History of COVID pneumonia, but as per [facility] records, she is not anymore on isolation. Patient refused repeating COVID test in the emergency room. 4. History of congestive heart failure. 5. Hypertension. 6. Hyperlipidemia. 7. Hypothyroidism. 8. Pacemaker. PLAN: 1. Admit. 2. Tele monitor. 3. Septic workup done in the ED. 4. The patient is also on IV antibiotic for suspicions of pneumonia ??? 5. IV diuresis. Possible underlying CHF exacerbation going on with elevated BNP and cardiac history. 6. Continue oxygen to keep saturation more than 92%. 7. Serial troponins. 8. Isolation precautions for now. Patient refused repeating COVID-19 test. 9. Reconcile home medications. 10. DVT prophylaxis as appropriate. 11. Expected length of stay, 2 midnights or more. Job ID: [id number]
[2020-02-10] MEDS ORDERED: Furosemide 40 MG/4 ML VIAL SLOW IVP SCH (02:00)
[2020-02-10 02:08] LABS: Actual Bicarbonate (HCO3a) 39.4 mEq/L (22-28); Base Excess (BEa) 11.6 mEq/L (-2.0 to +3.0); Calcium, Ionized (arterial) 1.19 mmol/L (1.12-1.30); Carboxyhemoglobin (COHb) 1.2 gm% (0.0-3.0); Hemoglobin (Hb) 10.4 g/dL (12.0-16.0); Potassium - ABG Lab 4.14 mmol/L (3.70-5.30); pH, Arterial 7.35 (7.35-7.45)
[2020-02-10 02:12] LABS: CO2 Tension 72.7 mmHg (35.0-45.0); O2 Tension (PaO2), arterial 49.9 mmHg (> 70.0)
[2020-02-10 02:13] LABS: ALV-art Gradient 172.945 mmHg (0-20); Puncture Site RBA
[2020-02-10] MEDS ORDERED: Calcium Carbonate 500 MG TAB PO PRN (02:43)
[2020-02-10] MEDS ORDERED: Bisacodyl 10 MG SUPP PR PRN (02:43)
[2020-02-10] MEDS: Lorazepam 2 MG/ML VIAL SLOW IVP PRN (04:52)
[2020-02-10] MEDS: Furosemide 40 MG/4 ML VIAL SLOW IVP SCH ×2 (04:53→14:31)
[2020-02-10 06:57] LABS: Band 12 % (5-11); Eosinophils 2 % (0-10); Hemoglobin 8.8 g/dL (12.0-16.0); Hypochromia SLIGHT = 6-15 cells (100X) (0-5/hpf); Lymphocytes 2 % (21-51); MDiff Complete? YES; Mean Corpuscular HGB CONC 30.6 g/dL (32.0-36.0); Mean Corpuscular Hemoglobin 30.3 pg (27.0-31.0); Mean Corpuscular Volume 98.8 fL (78.0-98.0); Mean Platelet Volume 8.1 fL (7.4-10.4); Monocytes 9 % (0-10); Neutrophil 75 % (42-75); Platelet Count 271 thou/uL (130-400); Platelet Morphology Comment Appears Adequate; RBC Distribution Width 17.4 % (11.5-14.5); Red Blood Cell (RBC) Count 2.92 mill/uL (4.20-5.40); White Blood Cell (WBC) Count 12.8 thou/uL (4.8-10.8)
[2020-02-10] MEDS: Budesonide 0.5 MG/2 ML NEB NEB SCH ×2 (07:00→19:32)
[2020-02-10 07:03] LABS: ALT (SGPT) 14 U/L (8-55); AST (SGOT) 22 U/L (5-34); Albumin 2.7 g/dL (3.4-4.8); Alkaline Phosphatase 72 U/L (40-110); BUN (Urea Nitrogen) 24 mg/dL (9.8-20.1); Bilirubin, Total 0.4 mg/dL (0.2-1.2); Calc. Creatinine Clearance 85 mL/min (70-130); Calcium 8.6 mg/dL (7.8-10.44); Glucose 105 mg/dL (83-110); Protein, Total 5.7 g/dL (6.0-8.3)
[2020-02-10 07:19] LABS: Anion Gap 19 mmol/L (10-20); Carbon Dioxide 34 mmol/L (23-31); Chloride 92 mmol/L (98-107); Potassium 4.3 mmol/L (3.5-5.1); Sodium 141 mmol/L (136-145)
[2020-02-10] MEDS ORDERED: Aspirin 81 mg Enteric Coated Tablet PO SCH (09:00)
[2020-02-10] MEDS: Cefepime 2 GM in Sodium Chloride 0.9% 100 ML IVPB SCH ×2 (10:52→20:07)
[2020-02-10] MEDS: Enoxaparin Sodium 40 MG/0.4 ML SYRINGE SC SCH (10:52)
[2020-02-10] MEDS: Vancomycin HCl 750 MG in Sodium Chloride 0.9% 250 ML 250 ML IVPB SCH ×2 (10:52→23:03)
[2020-02-10] MEDS: Aspirin 81 mg Enteric Coated Tablet PO SCH (12:30)
[2020-02-10] MEDS: Diabetic Tussin 200 MG/10 ML UDCUP PO SCH ×3 (12:30→21:12)
[2020-02-10] MEDS: Cyanocobalamin (Vitamin B-12) 1,000 MCG TAB PO SCH (12:30)
[2020-02-10] MEDS: Famotidine 20 MG TAB PO SCH (12:30)
[2020-02-10] MEDS: methylPREDNISolone Sod Succ 40 MG VIAL IVP SCH ×2 (14:32→21:12)
--- NOTE | 2020-02-10 15:28 | PDOC.HOSPP ---
- Subjective Encounter Date: 02/10/20 Encounter Time: 11:00 Subjective: awake, is on high flow O2 has sob but is comfortable on high flow responds to verbal stimuli - Objective Vital Signs & Weight: Vital Signs (12 hours) Pulse Pulse Pulse Resp BP BP Pulse Ox 02/10/20 12:59 85 90 148/52 H 158/89 H 02/10/20 10:53 90 22 H 99 02/10/20 08:00 99 02/10/20 04:00 94 L Pulse Ox Pulse Ox 02/10/20 12:59 93 L 95 02/10/20 10:53 02/10/20 08:00 02/10/20 04:00 Weight Admit Weight 134 lb 9.6 oz Weight 134 lb 9.6 oz Most Recent Monitor Data Heart Rate from ECG 86 NIBP 167/56 NIBP BP-Mean 93 Respiration from ECG 21 SpO2 100 Result Diagrams: 02/10/20 06:24 02/10/20 06:24 Hospitalist ROS - Medication Medications: Active Medications Generic Name Dose Route Start Last Admin Trade Name Freq PRN Reason Stop Dose Admin Albuterol/Ipratropium 3 ml 02/10/20 06:30 02/10/20 10:53 Ipratropium/Albuterol Sulfate 3 Ml Neb NEB 3 ml TID-RT YANIRA Administration Aspirin 81 mg 02/10/20 09:00 02/10/20 12:30 Aspirin 81 Mg Enteric Coated Tablet PO Not Given DAILY YANIRA Budesonide 0.5 mg 02/10/20 06:30 02/10/20 07:00 Budesonide 0.5 Mg/2 Ml Neb NEB Not Given BID-RT YANIRA Cyanocobalamin 1,000 mcg 02/10/20 09:00 02/10/20 12:30 Cyanocobalamin (Vitamin B-12) 1,000 Mcg Tab PO Not Given DAILY YANIRA Enoxaparin Sodium 40 mg 02/10/20 09:00 02/10/20 10:52 Enoxaparin Sodium 40 Mg/0.4 Ml Syringe SC 40 mg DAILY YANIRA Administration Famotidine 20 mg 02/10/20 09:00 02/10/20 12:30 Famotidine 20 Mg Tab PO Not Given DAILY YANIRA Furosemide 40 mg 02/10/20 06:00 02/10/20 14:31 Furosemide 40 Mg/4 Ml Vial SLOW IVP 40 mg 0600,1400 YANIRA Administration Guaifenesin 200 mg 02/10/20 09:00 02/10/20 14:31 Diabetic Tussin 200 Mg/10 Ml Udcup PO 200 mg TID YANIRA Administration Cefepime HCl 2 gm/ Sodium 100 mls @ 200 mls/hr 02/10/20 09:00 02/10/20 10:52 Chloride IVPB 100 mls Q12HR YANIRA Administration Vancomycin HCl 750 mg/ Sodium 250 mls @ 250 mls/hr 02/10/20 10:00 02/10/20 10:52 Chloride IVPB 250 mls 1000,2200 YANIRA Administration Lorazepam 0.5 mg 02/10/20 04:20 02/10/20 04:52 Lorazepam 2 Mg/Ml Vial SLOW IVP 0.5 mg Q30M PRN Administration Anxiety/Agitation Methylprednisolone Sodium Succinate 20 mg 02/10/20 14:00 02/10/20 14:32 Methylprednisolone Sod Succ 40 Mg Vial IVP 20 mg Q8HR YANIRA Administration Sodium Chloride 10 ml 02/10/20 09:00 02/10/20 10:53 Flush - Normal Saline 10 Ml Syringe IVF 10 ml Q12HR YANIRA Administration - Exam General Appearance: awake alert, ill appearing Eye: PERRL, anicteric sclera ENT: no oropharyngeal lesions, dry oral mucosa Neck: supple, no JVD Heart: RRR, no murmur Respiratory: rales, rhonchi, wheezes Gastrointestinal: soft, non-tender, non-distended, normal bowel sounds Extremities: no cyanosis, 1+ LE edema Neurological: cranial nerve grossly intact, no focal deficits Hosp A/P (1) Acute and chronic respiratory failure with hypoxia Code(s): J96.21 - ACUTE AND CHRONIC RESPIRATORY FAILURE WITH HYPOXIA Status: Acute (2) Acute on chronic systolic heart failure Code(s): I50.23 - ACUTE ON CHRONIC SYSTOLIC (CONGESTIVE) HEART FAILURE Status: Acute (3) Chronic obstructive pulmonary disease with (acute) exacerbation Code(s): J44.1 - CHRONIC OBSTRUCTIVE PULMONARY DISEASE W (ACUTE) EXACERBATION Status: Acute (4) PNA (pneumonia) Code(s): J18.9 - PNEUMONIA, UNSPECIFIED ORGANISM Status: Acute Qualifiers: (5) CAD (coronary artery disease) Code(s): I25.10 - ATHSCL HEART DISEASE OF [place] CORONARY ARTERY W/O ANG PCTRS Status: Chronic Qualifiers: Coronary Disease-Associated Artery/Lesion type: [place] artery [place] vs. transplanted heart: [place] heart Associated angina: without angina Qualified Code(s): I25.10 - Atherosclerotic heart disease of [place] coronary artery without angina pectoris (6) Aortic stenosis Code(s): I35.0 - NONRHEUMATIC AORTIC (VALVE) STENOSIS Status: Chronic Qualifiers: Cardiac valve disease etiology: nonrheumatic Qualified Code(s): I35.0 - Nonrheumatic aortic (valve) stenosis (7) HTN (hypertension) Code(s): I10 - ESSENTIAL (PRIMARY) HYPERTENSION Status: Chronic Qualifiers: (8) Hypothyroid Code(s): E03.9 - HYPOTHYROIDISM, UNSPECIFIED Status: Chronic Qualifiers: - Plan is on high flow O2 likely has underlying severe emphysema/copd with current pna and chf exacerbation prognosis guarded, she wants to be full code, I am unable to reach her daughter (tried to call her multiple times) has bnp of 1737, alb is 2.7, pco2 is 72, aortic stenosis with h/o avr, ef of 40%, failure to thrive. pulm consultation, has high likelihood of getting intubated with poor prognosis continue steroids, cefepime, vanc, lasix, pulmicort neb, asp, lipitor
--- NOTE | 2020-02-10 19:22 | CON ---
DATE OF CONSULTATION: 02/10/2020 HISTORY OF PRESENT ILLNESS: Ms. Goodman is a 79-year-old female, who has a very convoluted history including TAVR about 4 years ago. Earlier this year, she was found to have recurrent evidence of her aortic stenosis and following a delay precipitated by COVID, she went to [facility] for TAVR in November. There was concern about her ability to tolerate sedation because of her underlying lung disease. It sounds as though she was taken for the procedure, but upon induction of anesthesia, had a cardiac arrest, from which she was resuscitated. Exact events are unclear; however, a pacemaker was placed. She subsequently underwent TAVR without additional complication from a cardiac perspective, but reportedly developed a pneumonia, for which she was treated there at least a week prior to discharge. Family reports that her COVID test was negative presurgery, but they deny that it was re-evaluated when she became ill. She was discharged and was home only briefly before her condition deteriorated and she was admitted to [facility] and the diagnosis of COVID pneumonia was made. She was again treated with empiric antibiotic and COVID appropriate therapies. She was then transferred to rehab facility for therapy, but subsequently developed worsening shortness of breath and desaturation and was transferred to the hospital for further therapy. In the emergency room, her x-ray shows both acute and chronic radiographic findings and she is given empiric antibiotic therapy for pneumonia including meropenem and vancomycin (in light of multiple previous antibiotics and hospitalizations), she has never had a clear x-ray according to the family at least dating back to the time of TAVR procedure. She is known to have significant emphysema and is followed by the Pulmonary Service at [facility]. She has, however, only recently needed oxygen therapy. She reports intermittent recent sputum, which is described as green in color. She has not had any objective fever and has had no rigors or chills. Her functional capacity is quite limited and she is minimally ambulatory due to her COPD and recent multiple medical admissions. She is admitted to the [facility] and the Pulmonary Service is consulted to assist in her medical care. SOCIAL HISTORY: The patient is a 79-year-old female. She reportedly has an intolerance to Singulair (rash). She is a former smoker and is on home oxygen. Her medication list prior to admission and since admission have been reviewed. Her daughter is in attendance and is her primary decision maker. We have talked about the possible need for intubation and I have strongly encouraged the family to consider do not intubate status, given her multiple comorbid issues and severe debility. PAST MEDICAL AND SURGICAL HISTORY: Remarkable for aortic stenosis, for which she has had TAVR intervention x2. She has ischemic coronary artery disease with previous stenting. She has known COPD. She has recently had COVID. REVIEW OF SYSTEMS: Remarkable as above. PHYSICAL EXAMINATION: VITAL SIGNS: Blood pressure 165/60, heart rate is 85, saturation 98%. She is on high-flow nasal cannula 55 L and 50%. GENERAL: She is awake, chronically ill appearing. She is oriented and answers simple questions. Her main complaint is that of feeling the room is too warm. HEENT: She has no JVD. She has no oral Celia. She has no palpable cervical adenopathy. LUNGS: Show bilateral rhonchi. Breathing is nonlabored. There is no rub. HEART: Regular rate and rhythm. She has a quiet systolic murmur heard over the entire precordium. ABDOMEN: Soft. There is no organomegaly. EXTREMITIES: She has no edema. There are no cords or tenderness. She has a pacemaker in the left subclavian approach, which is still somewhat erythematous and ecchymotic, is only minimally tender. DIAGNOSTIC DATA: Chest x-ray reviewed by me shows pacemaker via the left with leads in good position. She has an ovoid density in the right mid lung consistent with loculated fluid in the fissure. Lungs are hyperinflated. There is trivial blunting of the left costophrenic angle. There is an area of more dense consolidation in the left upper lung. There are changes diffusely in the other lung zones, which are unchanged compared to a chest x-ray of 12/12, but are worse compared to an x-ray of September 16. At that time, however, she did have a consolidation in the right lower lung. White count is 12,800, hemoglobin is 8.8 with hematocrit of 28.8, and platelet count 271,000. Differential includes 75 segs and 12 bands. Electrolytes include sodium 141, potassium 4.3, chloride 92, CO2 is 34, BUN 24, creatinine 0.5. Liver tests are negative. Her BNP is 1740. Albumin is 2.7. Blood gas on 6 L nasal cannula had shown pH 7.35 with pCO2 of 72, pO2 of 50, and bicarbonate of 39. IMPRESSION: 1. Nlniw-ib-swewinz pneumonia. The patient has had radiographic abnormalities in multiple lung zones dating back several months, upon which the new left upper lung consolidation is noted. She has been on antibiotics immediately following her TAVR and then again at the time of her COVID pneumonia and yet still has both acute and chronic consolidative findings. As such, broad-spectrum empiric antibiotic is appropriate, although I am not really sure how to limit this. Ideally, she would have a good sputum or blood culture or even bronchoscopy to direct therapy. My personal opinion is that a lot of this is probably related to her underlying aortic stenosis and heart failure as well as some component related to COVID. The left upper lung is certainly new compared to November. 2. Chronic compensated respiratory acidosis. The patient's CO2 is 70 suggesting quite advanced underlying lung disease consistent with her known COPD. She actually does not look quite as bad as her blood gas looks. I think that this would lead additional evidence that explains her failure to respond and make recovery following her TAVR and also portends an extremely poor prognosis if she were to get intubated. 3. History of recent COVID pneumonia. 4. History of aortic stenosis with TAVR x2, most recently November. 5. History of procedural associated cardiac arrest at the time of TAVR. This suggests to me ischemic component. 6. Severe debility. PLAN: At this point, I agree with broad-spectrum antibiotics with cefepime and vancomycin, at least until we have cultures to help direct us. Radiographically, she has both acute and chronic changes and I do not really suspect that she is going to have much of an improvement over time. I think that despite her TAVR, she has a component of underlying cardiac dysfunction superimposed upon end-stage lung disease. I have discussed with the family whether or not they would want her on the ventilator and I will continue to have that conversation with them. I think that she would be extremely difficult to extubate if she were to require intubation. We will try to reduce her FiO2 in light of her CO2 retention. She has not made any recovery with attempted therapy and I am not sure that she has either the Will or the capacity to withstand aggressive therapy at the time of discharge. Thank you for this challenging consultation. Critical care time, 53 minutes. Job ID: [id number]
[2020-02-10] MEDS: Atorvastatin Calcium 40 MG TAB PO SCH (20:07)
[2020-02-10] MEDS ORDERED: FLU VACC QS2020-21(65YR UP)/PF 240 MCG/0.7 ML SYRINGE IM ONE (21:00)
[2020-02-11] MEDS: Furosemide 40 MG/4 ML VIAL SLOW IVP SCH ×2 (06:19→14:39)
[2020-02-11] MEDS: methylPREDNISolone Sod Succ 40 MG VIAL IVP SCH ×3 (06:20→21:25)
[2020-02-11] MEDS: Budesonide 0.5 MG/2 ML NEB NEB SCH ×2 (09:03→18:25)
[2020-02-11] MEDS: Aspirin 81 mg Enteric Coated Tablet PO SCH (09:43)
[2020-02-11] MEDS: Cefepime 2 GM in Sodium Chloride 0.9% 100 ML IVPB SCH ×2 (09:43→21:25)
[2020-02-11] MEDS: Vancomycin HCl 750 MG in Sodium Chloride 0.9% 250 ML 250 ML IVPB SCH ×2 (09:44→22:48)
[2020-02-11] MEDS: Famotidine 20 MG TAB PO SCH (09:44)
[2020-02-11] MEDS: Cyanocobalamin (Vitamin B-12) 1,000 MCG TAB PO SCH (09:44)
[2020-02-11] MEDS: Enoxaparin Sodium 40 MG/0.4 ML SYRINGE SC SCH (09:44)
[2020-02-11 09:53] LABS: #Lymphocytes 0.4 thou/uL (1.20-3.40); #Monocytes 0.3 thou/uL (0.11-0.59); %Basophils 0.1 % (0.0-1.0); %Eosinophils 0.4 % (0.0-10.0); %Lymphocytes 4.5 % (21.0-51.0); %Monocytes 3.1 % (0.0-10.0); Hemoglobin 9.9 g/dL (12.0-16.0); Mean Corpuscular HGB CONC 30.8 g/dL (32.0-36.0); Mean Corpuscular Hemoglobin 30.2 pg (27.0-31.0); Mean Corpuscular Volume 98.2 fL (78.0-98.0); Mean Platelet Volume 8.4 fL (7.4-10.4); Platelet Count 342 thou/uL (130-400); RBC Distribution Width 17.1 % (11.5-14.5); Red Blood Cell (RBC) Count 3.28 mill/uL (4.20-5.40); White Blood Cell (WBC) Count 9.8 thou/uL (4.8-10.8)
[2020-02-11 09:55] LABS: Vancomycin, Trough 16.8 ug/mL
[2020-02-11 09:57] LABS: BUN (Urea Nitrogen) 27 mg/dL (9.8-20.1); Calc. Creatinine Clearance 73 mL/min (70-130); Calcium 8.9 mg/dL (7.8-10.44); Glucose 213 mg/dL (83-110)
[2020-02-11] MEDS: Diabetic Tussin 200 MG/10 ML UDCUP PO SCH ×3 (09:59→21:25)
[2020-02-11] MEDS: Lorazepam 2 MG/ML VIAL SLOW IVP PRN (10:48)
[2020-02-11 11:58] LABS: Carbon Dioxide 39 mmol/L (23-31)
[2020-02-11 12:51] LABS: Chloride 92 mmol/L (98-107); Potassium 3.6 mmol/L (3.5-5.1); Sodium 145 mmol/L (136-145)
[2020-02-11 12:52] LABS: Anion Gap 17 mmol/L (10-20)
--- NOTE | 2020-02-11 13:04 | PDOC.HOSPP ---
- Subjective Encounter Date: 02/11/20 Encounter Time: 12:00 Subjective: appears more calm and breathing better this morning on high flow - Objective Vital Signs & Weight: Vital Signs (12 hours) Temp Pulse Resp Pulse Ox 02/11/20 11:38 97.3 F L 02/11/20 09:05 98 02/11/20 09:03 87 16 98 02/11/20 08:00 96 02/11/20 07:20 98 F 02/11/20 04:18 99.1 F Weight Admit Weight 134 lb 9.6 oz Weight 136 lb Most Recent Monitor Data Heart Rate from ECG 92 NIBP 172/67 NIBP BP-Mean 102 Respiration from ECG 15 SpO2 95 I&O: 02/10/20 02/11/20 02/12/20 06:59 06:59 06:59 Intake Total 1440 Output Total 2250 Balance -810 Result Diagrams: 02/11/20 08:52 02/11/20 08:52 Hospitalist ROS - Medication Medications: Active Medications Generic Name Dose Route Start Last Admin Trade Name Freq PRN Reason Stop Dose Admin Albuterol/Ipratropium 3 ml 02/10/20 06:30 02/11/20 09:03 Ipratropium/Albuterol Sulfate 3 Ml Neb NEB 3 ml TID-RT YANIRA Administration Aspirin 81 mg 02/10/20 09:00 02/11/20 09:43 Aspirin 81 Mg Enteric Coated Tablet PO 81 mg DAILY YANIRA Administration Atorvastatin Calcium 40 mg 02/10/20 21:00 02/10/20 20:07 Atorvastatin Calcium 40 Mg Tab PO 40 mg HS YANIRA Administration Budesonide 0.5 mg 02/10/20 06:30 02/11/20 09:03 Budesonide 0.5 Mg/2 Ml Neb NEB 0.5 mg BID-RT YANIRA Administration Cyanocobalamin 1,000 mcg 02/10/20 09:00 02/11/20 09:44 Cyanocobalamin (Vitamin B-12) 1,000 Mcg Tab PO 1,000 mcg DAILY YANIRA Administration Enoxaparin Sodium 40 mg 02/10/20 09:00 02/11/20 09:44 Enoxaparin Sodium 40 Mg/0.4 Ml Syringe SC 40 mg DAILY YANIRA Administration Famotidine 20 mg 02/10/20 09:00 02/11/20 09:44 Famotidine 20 Mg Tab PO 20 mg DAILY YANIRA Administration Furosemide 40 mg 02/10/20 06:00 02/11/20 06:19 Furosemide 40 Mg/4 Ml Vial SLOW IVP 40 mg 0600,1400 YANIRA Administration Guaifenesin 200 mg 02/10/20 09:00 02/11/20 09:59 Diabetic Tussin 200 Mg/10 Ml Udcup PO 200 mg TID YANIRA Administration Cefepime HCl 2 gm/ Sodium 100 mls @ 200 mls/hr 02/10/20 09:00 02/11/20 09:43 Chloride IVPB 100 mls Q12HR YANIRA Administration Vancomycin HCl 750 mg/ Sodium 250 mls @ 250 mls/hr 02/10/20 10:00 02/11/20 09:44 Chloride IVPB 250 mls 1000,2200 YANIRA Administration Methylprednisolone Sodium Succinate 20 mg 02/10/20 14:00 02/11/20 06:20 Methylprednisolone Sod Succ 40 Mg Vial IVP 20 mg Q8HR YANIRA Administration Sodium Chloride 10 ml 02/10/20 09:00 02/11/20 09:44 Flush - Normal Saline 10 Ml Syringe IVF 10 ml Q12HR YANIRA Administration - Exam General Appearance: awake alert Eye: PERRL, anicteric sclera ENT: no oropharyngeal lesions, dry oral mucosa Neck: supple, no JVD Heart: RRR, no murmur Respiratory: no wheezes, rales, rhonchi Gastrointestinal: soft, non-tender, non-distended, normal bowel sounds Extremities: no cyanosis, 1+ LE edema Neurological: cranial nerve grossly intact, no focal deficits Hosp A/P (1) Acute and chronic respiratory failure with hypoxia Code(s): J96.21 - ACUTE AND CHRONIC RESPIRATORY FAILURE WITH HYPOXIA Status: Acute (2) Acute on chronic systolic heart failure Code(s): I50.23 - ACUTE ON CHRONIC SYSTOLIC (CONGESTIVE) HEART FAILURE Status: Acute (3) Chronic obstructive pulmonary disease with (acute) exacerbation Code(s): J44.1 - CHRONIC OBSTRUCTIVE PULMONARY DISEASE W (ACUTE) EXACERBATION Status: Acute (4) PNA (pneumonia) Code(s): J18.9 - PNEUMONIA, UNSPECIFIED ORGANISM Status: Acute Qualifiers: Pneumonia type: due to unspecified organism Laterality: left Lung location: upper lobe of lung Qualified Code(s): J18.9 - Pneumonia, unspecified organism (5) CAD (coronary artery disease) Code(s): I25.10 - ATHSCL HEART DISEASE OF [place] CORONARY ARTERY W/O ANG PCTRS Status: Chronic Qualifiers: Coronary Disease-Associated Artery/Lesion type: [place] artery [place] vs. transplanted heart: [place] heart Associated angina: without angina Qualified Code(s): I25.10 - Atherosclerotic heart disease of [place] coronary artery without angina pectoris (6) Aortic stenosis Code(s): I35.0 - NONRHEUMATIC AORTIC (VALVE) STENOSIS Status: Chronic Qualifiers: Cardiac valve disease etiology: nonrheumatic Qualified Code(s): I35.0 - Nonrheumatic aortic (valve) stenosis (7) HTN (hypertension) Code(s): I10 - ESSENTIAL (PRIMARY) HYPERTENSION Status: Chronic Qualifiers: (8) Hypothyroid Code(s): E03.9 - HYPOTHYROIDISM, UNSPECIFIED Status: Chronic Qualifiers: - Plan is on high flow O2 likely has underlying severe emphysema/copd with current pna and chf exacerbation prognosis guarded, she wants to be full code, I am unable to reach her daughter (tried to call her multiple times 02/09 and 02/10) has bnp of 1737, alb is 2.7, pco2 is 72, aortic stenosis with h/o avr, ef of 40%, failure to thrive. will consult cardiology, likely has underlying severe with chf exac in addition to lung issues. continue steroids, cefepime, vanc, lasix, pulmicort neb, asp, lipitor
--- NOTE | 2020-02-11 13:14 | PRG ---
DATE OF SERVICE: 02/11/2020 SUBJECTIVE: She remains on a high-flow nasal cannula at 40%. She is complaining about not liking the thickened foods and liquids. She denies sputum, fevers, or chills. PHYSICAL EXAMINATION: VITAL SIGNS: Blood pressure 172/67, heart rate 92, saturation 95%, temperature 97.3. GENERAL: She is an elderly lady, in mild distress. She is slightly confused. NECK: Shows no adenopathy. LUNGS: Show bilateral rhonchi. HEART: Regular rate and rhythm. ABDOMEN: Soft. There is no organomegaly. She has no cords. LABORATORY DATA: White count 9800, hemoglobin is 9.9 with hematocrit of 32.2, platelet count 347,000. Chemistry includes sodium 145, potassium 3.6, chloride 92, CO2 of 39, BUN 27, creatinine 0.6. IMAGING STUDIES: She has not had an x-ray today. IMPRESSION: 1. Pneumonia probably residual from COVID, although secondary bacterial infection cannot be excluded. 2. Longstanding tobacco abuse with end-stage chronic obstructive pulmonary disease and blood gas evidence of severe chronic compensated respiratory acidosis (CO2 of 70). 3. History of TAVR. PLAN: She will continue with current therapies. I have reduced her FiO2 to 35%. We could try to begin mobilization. In an ideal situation, she could be transferred to the medical unit. She is going to need a very long rehabilitation recovery program. Job ID: [id number]
[2020-02-11] MEDS ORDERED: Lisinopril 10 MG TAB PO SCH (14:45)
--- NOTE | 2020-02-11 15:47 | CON ---
DATE OF CONSULTATION: 02/11/2020 INDICATION FOR CONSULTATION: A 80-year-old female who has been seen by Dr. Chapa a couple of months ago. She is a 80-year-old lady who had increasing dyspnea at the senior living and was sent here for further evaluation. HISTORY OF PRESENT ILLNESS: This is a 80-year-old female who has a history of TAVR replacement x2. The first time was in 2015. She underwent repeat TAVR implant in November of 2019. Previous to that, she was scheduled to undergo a TAVR implant in October of this year and during the procedure she developed a cardiac arrest. Pacemaker was implanted on the same admission. She was then discharged home and was then rescheduled to undergo the TAVR placement in November. Since that time, she has not done well since being in the hospital. She apparently was sent home with pneumonia. She then was at home for a couple of weeks. Then, due to increasing shortness of breath and confusion, she was brought back to the hospital, I believe over [facility], and she was diagnosed with COVID. She then was in the hospital longer and eventually went to rehab about three days ago and then the rehab facility called 911 as the patient apparently became somewhat confused and had decreased O2 saturations and was again brought to the emergency room and again was readmitted. At this time, she is awake, alert. She has high-flow oxygen on and denies any significant discomfort or complaints at this time. PAST MEDICAL HISTORY: Significant for aortic valve stenosis with TAVR replacement in 2015 and repeat TAVR in November of 2019. She has a history of coronary artery disease, but she denied any stent placed in the past. Dr. Wagenr works at [facility] and the doctor believes that she has had carotids and subclavian stents placed. It is uncertain if she has had any coronary stents placed and the patient denies it, but we do not have any records that would indicate this one or the other. She has a history of congestive heart failure, which appears to be both systolic and diastolic. She has a history of hypertension. Her last echocardiogram was November of 2019, which showed ejection fraction of 40% to 45% with severe aortic valve stenosis, moderate mitral valve regurgitation, as well as diastolic dysfunction and left ventricular hypertrophy. She has had a tonsillectomy and lumpectomy. SOCIAL HISTORY: She smoked in the past, but no longer smokes. There is no alcohol use. ALLERGIES: SHE IS ALLERGIC TO [place]. MEDICATIONS: At this time, she was taking; 1. Aspirin 81 mg a day. 2. Atorvastatin 40 mg a day. 3. Cyanocobalamin 1000 mcg daily. 4. Dextromethorphan/guaifenesin. 5. Lovenox 40 mg/0.4 mL solution, 40 mg daily. 6. Furosemide 40 mg a day. 7. She was also taking levothyroxine 75 mcg a day. 8. Lisinopril 10 mg a day. 9. Multivitamins. 10. Nystatin. 11. Polyethylene glycol. 12. Aldactone 25 mg once a day. 13. She was also taking multiple p.r.n. medications. REVIEW OF SYSTEMS: She is somewhat weak. She still has some shortness of breath, but is feeling better, now that she is on high-flow oxygen. Otherwise, her review of systems is unremarkable except what is noted in the history of present illness. She has been very weak. She said she is not getting out of the bed since her TAVR replacement in November and thus gone to rehab, but apparently still in the bed and has not been able to ambulate very much due to generalized deconditioning. PHYSICAL EXAMINATION: GENERAL: Reveals an elderly, thin, ill-appearing female. She is in no acute distress at this time. She is alert. She is oriented. She was resting peacefully when I saw her, but then was able to be awoken easily and discussed her situation. VITAL SIGNS: Her blood pressure is elevated at 172/67, heart rate is 92 and regular, respiratory rate is 15 to 20. She is afebrile. O2 saturation is 92%. HEENT: Shows the head to be normocephalic and atraumatic. Difficult to hear the carotids due to the high flow oxygen. CHEST: Has diffuse bilateral rales and rhonchi. CARDIOVASCULAR: Reveals a regular rate and rhythm. I cannot hear any significant murmurs, heaves, thrills, bruits, or rubs. She does have a very soft systolic murmur of the aortic area. ABDOMEN: Soft and nontender. EXTREMITIES: Show no clubbing, cyanosis, or edema. Pedal pulses are present. NEUROLOGIC: She appears to be intact and was overall generally very weak and deconditioned. LABORATORY DATA: Shows sodium 141, potassium 4.3, bicarb was 39, chloride was 92, BUN was 27, creatinine 0.62, blood sugar 213. Troponin I was 0.05 and has remained 0.05 up to 0.057 and back down to 0.056, essentially unchanged and would not indicate a myocardial infarction, if anything demand ischemia associated with hypoxemia. Her O2 saturation on admission was 81% on the blood gas. Hemoglobin is 9.9, hematocrit 32.2, WBC of 9.8, and platelet count 342,000. Chest x-ray shows a left-sided pneumonia with also what appears to be some fluid, which is compatible with previous chest x-rays on the right fissure area loculated fluid. Her EKG shows atrial sensing with ventricular pacing. IMPRESSION: 1. A 80-year-old female with pneumonia. She did have COVID pneumonia in the past and does not appear that she has recovered from this pneumonia, perhaps she had a relapse. She is being treated with antibiotics at this time and is on high-flow oxygen. 2. History of TAVR replacement x2. She seems to be doing relatively well with this. We will suggest she undergo a repeat echocardiogram for evaluation to ensure there is no significant aortic stenosis. 3. Status post pacemaker insertion. This appears to be stable. She does have atrial sensing and ventricular pacing. Occasionally, she has atrial sensing and ventricular sensing. 4. History of hypertension. We will need to continue to manage her medications. I will review her medications again and decide whether or not we can increase the medications to lower the blood pressure. 5. History of possible coronary artery disease. I do not have any documentation of this. I do not have any records, but perhaps Dr. Mercado or Dr. Wagner may have some records from her previous evaluations. She presently is seeing Dr. Mercado over at [facility]. 6. History of peripheral vascular disease. She has undergone carotid and subclavian stenting apparently. We will be more than happy to continue to follow the patient with you. Most likely, Dr. Chapa will visit with her tomorrow. Job ID: [id number]
[2020-02-11] MEDS: Atorvastatin Calcium 40 MG TAB PO SCH (21:25)
[2020-02-11] MEDS ORDERED: Lorazepam 2 MG/ML VIAL SLOW IVP SCH (22:30)
[2020-02-12 04:02] LABS: Anion Gap 16 mmol/L (10-20); BUN (Urea Nitrogen) 31 mg/dL (9.8-20.1); Calc. Creatinine Clearance 74 mL/min (70-130); Calcium 8.5 mg/dL (7.8-10.44); Carbon Dioxide 36 mmol/L (23-31); Chloride 95 mmol/L (98-107); Glucose 156 mg/dL (83-110); Potassium 4.3 mmol/L (3.5-5.1); Sodium 143 mmol/L (136-145)
[2020-02-12 04:03] LABS: Hemoglobin 8.6 g/dL (12.0-16.0); Mean Corpuscular HGB CONC 31.3 g/dL (32.0-36.0); Mean Corpuscular Hemoglobin 30.8 pg (27.0-31.0); Mean Corpuscular Volume 98.5 fL (78.0-98.0); Mean Platelet Volume 8.2 fL (7.4-10.4); Platelet Count 243 thou/uL (130-400); RBC Distribution Width 17.3 % (11.5-14.5); Red Blood Cell (RBC) Count 2.78 mill/uL (4.20-5.40); White Blood Cell (WBC) Count 10.7 thou/uL (4.8-10.8)
[2020-02-12 04:04] LABS: Band 16 % (5-11); Hypochromia SLIGHT = 6-15 cells (100X) (0-5/hpf); Lymphocytes 16 % (21-51); MDiff Complete? YES; Neutrophil 68 % (42-75); Platelet Morphology Comment Appears Adequate
[2020-02-12] MEDS ORDERED: hydrALAZINE 20 MG/ML VIAL SLOW IVP SCH (04:45)
[2020-02-12] MEDS: methylPREDNISolone Sod Succ 40 MG VIAL IVP SCH (05:15)
[2020-02-12] MEDS: Furosemide 40 MG/4 ML VIAL SLOW IVP SCH ×2 (05:15→15:17)
[2020-02-12] MEDS: Budesonide 0.5 MG/2 ML NEB NEB SCH ×2 (07:48→19:02)
[2020-02-12] MEDS: Diabetic Tussin 200 MG/10 ML UDCUP PO SCH ×3 (08:51→20:36)
[2020-02-12] MEDS: Enoxaparin Sodium 40 MG/0.4 ML SYRINGE SC SCH (08:51)
[2020-02-12] MEDS: Cefepime 2 GM in Sodium Chloride 0.9% 100 ML IVPB SCH (08:52)
[2020-02-12] MEDS: Cyanocobalamin (Vitamin B-12) 1,000 MCG TAB PO SCH (08:52)
[2020-02-12] MEDS: Famotidine 20 MG TAB PO SCH (08:52)
[2020-02-12] MEDS: Aspirin 81 mg Enteric Coated Tablet PO SCH (08:52)
[2020-02-12] MEDS: Lisinopril 10 MG TAB PO SCH (08:56)
[2020-02-12] MEDS ORDERED: Spironolactone 25 MG TAB PO SCH (10:30)
[2020-02-12] MEDS: Vancomycin HCl 750 MG in Sodium Chloride 0.9% 250 ML 250 ML IVPB SCH (10:32)
--- NOTE | 2020-02-12 11:17 | PRG ---
DATE OF SERVICE: 02/12/2020 SUBJECTIVE: Yuridia Goodman remains in the MICU, but much better this morning. She is on low-flow O2. OBJECTIVE: VITAL SIGNS: Pulse 80, respiratory rate 18, blood pressure . CHEST: With extensive rhonchi and crackles. CARDIAC: Normal S1, S2. No gallops. ABDOMEN: No masses. LABORATORY DATA: Shows white count 10,000, H and H , platelet count is normal. Lytes are normal. X-ray shows bilateral infiltrates. All cultures are negative. ASSESSMENT: Respiratory failure, coronavirus positive pneumonia in the past and negative this time. Chronic obstructive pulmonary disease, former smoker, abnormal chest x-ray. PLAN: Switch her to oral medication. She can probably eventually be transferred out of the MICU. We will follow. Job ID: [id number]
[2020-02-12] MEDS: Lorazepam 0.5 MG TAB PO PRN ×2 (12:56→20:36)
--- NOTE | 2020-02-12 14:24 | PDOC.HOSPP ---
- Subjective Encounter Date: 02/12/20 Encounter Time: 08:45 Subjective: is on nasal canula oxygen, feels better says she cant eat too much no complaints - Objective Vital Signs & Weight: Vital Signs (12 hours) Temp Pulse Resp BP Pulse Ox 02/12/20 11:17 78 18 100 02/12/20 11:00 97.8 F 02/12/20 08:56 173/69 H 02/12/20 07:48 94 L 02/12/20 07:47 77 22 H 94 L 02/12/20 07:43 97.4 F L 02/12/20 07:27 92 L 02/12/20 05:14 173/69 H 02/12/20 05:00 98.2 F Weight Admit Weight 134 lb 9.6 oz Weight 135 lb Most Recent Monitor Data Heart Rate from ECG 84 NIBP 166/56 NIBP BP-Mean 92 Respiration from ECG 17 SpO2 98 I&O: 02/11/20 02/12/20 02/13/20 06:59 06:59 06:59 Intake Total 1440 1801 Output Total 2250 950 Balance -810 851 Result Diagrams: 02/12/20 03:33 02/12/20 03:33 Hospitalist ROS - Medication Medications: Active Medications Generic Name Dose Route Start Last Admin Trade Name Freq PRN Reason Stop Dose Admin Albuterol/Ipratropium 3 ml 02/12/20 11:00 02/12/20 11:17 Ipratropium/Albuterol Sulfate 3 Ml Neb NEB 3 ml [id number] YANIRA Administration Aspirin 81 mg 02/10/20 09:00 02/12/20 08:52 Aspirin 81 Mg Enteric Coated Tablet PO 81 mg DAILY YANIRA Administration Atorvastatin Calcium 40 mg 02/10/20 21:00 02/11/20 21:25 Atorvastatin Calcium 40 Mg Tab PO 40 mg HS YANIRA Administration Budesonide 0.5 mg 02/10/20 06:30 02/12/20 07:48 Budesonide 0.5 Mg/2 Ml Neb NEB 0.5 mg BID-RT YANIRA Administration Cyanocobalamin 1,000 mcg 02/10/20 09:00 02/12/20 08:52 Cyanocobalamin (Vitamin B-12) 1,000 Mcg Tab PO 1,000 mcg DAILY YANIRA Administration Enoxaparin Sodium 40 mg 02/10/20 09:00 02/12/20 08:51 Enoxaparin Sodium 40 Mg/0.4 Ml Syringe SC 40 mg DAILY YANIRA Administration Famotidine 20 mg 02/10/20 09:00 02/12/20 08:52 Famotidine 20 Mg Tab PO 20 mg DAILY YANIRA Administration Furosemide 40 mg 02/10/20 06:00 02/12/20 05:15 Furosemide 40 Mg/4 Ml Vial SLOW IVP 40 mg 0600,1400 YANIRA Administration Guaifenesin 200 mg 02/10/20 09:00 02/12/20 08:51 Diabetic Tussin 200 Mg/10 Ml Udcup PO 200 mg TID YANIRA Administration Lisinopril 10 mg 02/12/20 09:00 02/12/20 08:56 Lisinopril 10 Mg Tab PO 10 mg DAILY YANIRA Administration Sodium Chloride 10 ml 02/10/20 09:00 02/12/20 08:53 Flush - Normal Saline 10 Ml Syringe IVF 10 ml Q12HR YANIRA Administration - Exam General Appearance: awake alert Eye: PERRL, anicteric sclera ENT: no oropharyngeal lesions, moist mucosa Neck: supple, no JVD Heart: RRR, murmur present Respiratory: no wheezes, rales, rhonchi Gastrointestinal: soft, non-tender, non-distended, normal bowel sounds Extremities: no cyanosis, no edema Neurological: cranial nerve grossly intact, no focal deficits Hosp A/P (1) Acute and chronic respiratory failure with hypoxia Code(s): J96.21 - ACUTE AND CHRONIC RESPIRATORY FAILURE WITH HYPOXIA Status: Acute (2) Acute on chronic systolic heart failure Code(s): I50.23 - ACUTE ON CHRONIC SYSTOLIC (CONGESTIVE) HEART FAILURE Status: Acute (3) Chronic obstructive pulmonary disease with (acute) exacerbation Code(s): J44.1 - CHRONIC OBSTRUCTIVE PULMONARY DISEASE W (ACUTE) EXACERBATION Status: Acute (4) PNA (pneumonia) Code(s): J18.9 - PNEUMONIA, UNSPECIFIED ORGANISM Status: Suspected Qualifiers: Pneumonia type: due to unspecified organism Laterality: left Lung location: upper lobe of lung Qualified Code(s): J18.9 - Pneumonia, unspecified organism (5) CAD (coronary artery disease) Code(s): I25.10 - ATHSCL HEART DISEASE OF [place] CORONARY ARTERY W/O ANG PCTRS Status: Chronic Qualifiers: Coronary Disease-Associated Artery/Lesion type: [place] artery [place] vs. transplanted heart: [place] heart Associated angina: without angina Qualified Code(s): I25.10 - Atherosclerotic heart disease of [place] coronary artery without angina pectoris (6) Aortic stenosis Code(s): I35.0 - NONRHEUMATIC AORTIC (VALVE) STENOSIS Status: Chronic Qualifiers: Cardiac valve disease etiology: nonrheumatic Qualified Code(s): I35.0 - Nonrheumatic aortic (valve) stenosis (7) HTN (hypertension) Code(s): I10 - ESSENTIAL (PRIMARY) HYPERTENSION Status: Chronic Qualifiers: (8) Hypothyroid Code(s): E03.9 - HYPOTHYROIDISM, UNSPECIFIED Status: Chronic Qualifiers: - Plan is on nasal canula O2 likely has underlying severe emphysema/copd with current pna and chf exacerbation prognosis guarded, she wants to be full code, I am unable to reach her daughter (tried to call her multiple times 02/09 and 02/10, 02/11) likely her phone # is wrong on [place] to identify daughter's phone number to contact if needed. has bnp of 1737, alb is 2.7, pco2 is 72, aortic stenosis with h/o avr, ef of 40%, failure to thrive. likely has underlying severe with chf exac in addition to lung issues. continue steroids, lasix, pulmicort neb, asp, lipitor PT to mobilize as tolerated may tx to telemetry
[2020-02-12] MEDS: Atorvastatin Calcium 40 MG TAB PO SCH (20:36)
[2020-02-12] MEDS: predniSONE 20 MG TAB PO SCH (20:36)
[2020-02-13 04:56] LABS: BUN (Urea Nitrogen) 38 mg/dL (9.8-20.1); Calc. Creatinine Clearance 68 mL/min (70-130); Calcium 8.5 mg/dL (7.8-10.44); Glucose 136 mg/dL (83-110)
[2020-02-13 05:04] LABS: Anion Gap 18 mmol/L (10-20); Carbon Dioxide 37 mmol/L (23-31); Chloride 94 mmol/L (98-107); Potassium 3.7 mmol/L (3.5-5.1); Sodium 145 mmol/L (136-145)
[2020-02-13 05:06] LABS: Vancomycin, Trough 14.5 ug/mL
[2020-02-13] MEDS: Furosemide 40 MG/4 ML VIAL SLOW IVP SCH (05:57)
[2020-02-13] MEDS: Budesonide 0.5 MG/2 ML NEB NEB SCH ×2 (07:40→19:13)
[2020-02-13] MEDS: predniSONE 20 MG TAB PO SCH ×2 (09:23→20:26)
[2020-02-13] MEDS: Cyanocobalamin (Vitamin B-12) 1,000 MCG TAB PO SCH (09:23)
[2020-02-13] MEDS: Lisinopril 10 MG TAB PO SCH (09:24)
[2020-02-13] MEDS: Aspirin 81 mg Enteric Coated Tablet PO SCH (09:25)
[2020-02-13] MEDS: Famotidine 20 MG TAB PO SCH (09:25)
[2020-02-13] MEDS: Enoxaparin Sodium 40 MG/0.4 ML SYRINGE SC SCH (09:26)
[2020-02-13] MEDS: Diabetic Tussin 200 MG/10 ML UDCUP PO SCH ×3 (09:26→20:25)
[2020-02-13] MEDS: Spironolactone 25 MG TAB PO SCH (09:26)
--- NOTE | 2020-02-13 10:45 | PRG ---
DATE OF SERVICE: 02/13/2020 SUBJECTIVE: Yuridia Goodman is a 80-year-old female. OBJECTIVE: VITAL SIGNS: This morning, temperature 97, pulse 77, blood pressure 130/46, sats 100% on 4 L. GENERAL: She is weak. She is short of breath. She is coughing. CHEST: No wheezing. No crackles. CARDIAC: Normal S1 and S2. No gallops. IMPRESSION: 1. Respiratory failure. 2. Chronic obstructive pulmonary disease. 3. Abnormal x-ray. 4. Chronic azotemia. PLAN: Low-dose prednisone, steroids, antibiotics. She will be transferred out of the MICU any time. Job ID: [id number]
[2020-02-13 12:41] VITALS: BMI 26.9
--- NOTE | 2020-02-13 14:19 | PDOC.HOSPP ---
- Subjective Encounter Date: 02/13/20 Encounter Time: 08:30 Subjective: no sob, feels better is on nasal canula 1 liter now eating better has not ambulated yet - Objective Vital Signs & Weight: Vital Signs (12 hours) Temp Pulse Resp BP Pulse Ox 02/13/20 11:21 97.7 F 02/13/20 10:54 78 15 100 02/13/20 09:24 130/46 L 02/13/20 08:00 96 02/13/20 07:40 100 02/13/20 07:39 77 15 100 02/13/20 07:00 97.2 F L 02/13/20 04:13 97.7 F 02/13/20 02:48 100 Weight Admit Weight 134 lb 9.6 oz Weight 137 lb 9.004 oz Most Recent Monitor Data Heart Rate from ECG 90 NIBP 166/52 NIBP BP-Mean 90 Respiration from ECG 24 SpO2 91 I&O: 02/12/20 02/13/20 02/14/20 06:59 06:59 06:59 Intake Total 1801 1274 Output Total 950 500 Balance 851 774 Result Diagrams: 02/12/20 03:33 02/13/20 04:15 Hospitalist ROS - Medication Medications: Active Medications Generic Name Dose Route Start Last Admin Trade Name Freq PRN Reason Stop Dose Admin Albuterol/Ipratropium 3 ml 02/12/20 11:00 02/13/20 10:54 Ipratropium/Albuterol Sulfate 3 Ml Neb NEB 3 ml [id number] YANIRA Administration Aspirin 81 mg 02/10/20 09:00 02/13/20 09:25 Aspirin 81 Mg Enteric Coated Tablet PO 81 mg DAILY YANIRA Administration Atorvastatin Calcium 40 mg 02/10/20 21:00 02/12/20 20:36 Atorvastatin Calcium 40 Mg Tab PO 40 mg HS YANIRA Administration Budesonide 0.5 mg 02/10/20 06:30 02/13/20 07:40 Budesonide 0.5 Mg/2 Ml Neb NEB 0.5 mg BID-RT YANIRA Administration Cyanocobalamin 1,000 mcg 02/10/20 09:00 02/13/20 09:23 Cyanocobalamin (Vitamin B-12) 1,000 Mcg Tab PO 1,000 mcg DAILY YANIRA Administration Enoxaparin Sodium 40 mg 02/10/20 09:00 02/13/20 09:26 Enoxaparin Sodium 40 Mg/0.4 Ml Syringe SC 40 mg DAILY YANIRA Administration Famotidine 20 mg 02/10/20 09:00 02/13/20 09:25 Famotidine 20 Mg Tab PO 20 mg DAILY YANIRA Administration Guaifenesin 200 mg 02/10/20 09:00 02/13/20 09:26 Diabetic Tussin 200 Mg/10 Ml Udcup PO 200 mg TID YANIRA Administration Lisinopril 10 mg 02/12/20 09:00 02/13/20 09:24 Lisinopril 10 Mg Tab PO 10 mg DAILY YANIRA Administration Lorazepam 0.5 mg 02/12/20 11:03 02/12/20 20:36 Lorazepam 0.5 Mg Tab PO 0.5 mg BIDPRN PRN Administration Anxiety Prednisone 20 mg 02/12/20 21:00 02/13/20 09:23 Prednisone 20 Mg Tab PO 20 mg BID YANIRA Administration Sodium Chloride 10 ml 02/10/20 09:00 02/13/20 09:26 Flush - Normal Saline 10 Ml Syringe IVF 10 ml Q12HR YANIRA Administration Spironolactone 25 mg 02/13/20 08:00 02/13/20 09:26 Spironolactone 25 Mg Tab PO 25 mg QAM-WM YANIRA Administration - Exam General Appearance: awake alert, ill appearing Eye: PERRL, anicteric sclera ENT: no oropharyngeal lesions, moist mucosa Neck: supple, no JVD Heart: RRR, no murmur Respiratory: no wheezes, rhonchi Gastrointestinal: soft, non-tender, non-distended, normal bowel sounds Extremities: no cyanosis, no edema Neurological: cranial nerve grossly intact, no focal deficits Hosp A/P (1) Acute and chronic respiratory failure with hypoxia Code(s): J96.21 - ACUTE AND CHRONIC RESPIRATORY FAILURE WITH HYPOXIA Status: Acute (2) Acute on chronic systolic heart failure Code(s): I50.23 - ACUTE ON CHRONIC SYSTOLIC (CONGESTIVE) HEART FAILURE Status: Acute (3) Chronic obstructive pulmonary disease with (acute) exacerbation Code(s): J44.1 - CHRONIC OBSTRUCTIVE PULMONARY DISEASE W (ACUTE) EXACERBATION Status: Acute (4) PNA (pneumonia) Code(s): J18.9 - PNEUMONIA, UNSPECIFIED ORGANISM Status: Suspected Qualifiers: Pneumonia type: due to unspecified organism Laterality: left Lung location: upper lobe of lung Qualified Code(s): J18.9 - Pneumonia, unspecified organism (5) CAD (coronary artery disease) Code(s): I25.10 - ATHSCL HEART DISEASE OF [place] CORONARY ARTERY W/O ANG PCTRS Status: Chronic Qualifiers: Coronary Disease-Associated Artery/Lesion type: [place] artery [place] vs. transplanted heart: [place] heart Associated angina: without angina Qualified Code(s): I25.10 - Atherosclerotic heart disease of [place] coronary artery without angina pectoris (6) Aortic stenosis Code(s): I35.0 - NONRHEUMATIC AORTIC (VALVE) STENOSIS Status: Chronic Qualifiers: Cardiac valve disease etiology: nonrheumatic Qualified Code(s): I35.0 - Nonrheumatic aortic (valve) stenosis (7) HTN (hypertension) Code(s): I10 - ESSENTIAL (PRIMARY) HYPERTENSION Status: Chronic Qualifiers: (8) Hypothyroid Code(s): E03.9 - HYPOTHYROIDISM, UNSPECIFIED Status: Chronic Qualifiers: - Plan is on nasal canula O2 likely has underlying severe emphysema/copd with current pna and chf exacerbation prognosis guarded, she wants to be full code, d/w daughter over phone and gave full updates, she wants her going to inpt rehab (pt was scheduled to go to rehab prior to getting hospitalized per daughter) has bnp of 1737, alb is 2.7, pco2 is 72, aortic stenosis with h/o avr, ef of 40%, failure to thrive. likely has underlying severe with chf exac in addition to lung issues. continue steroids, lasix, pulmicort neb, asp, lipitor PT to mobilize as tolerated may tx to telemetry dc plan in am to rehab if accepted
[2020-02-13] MEDS ORDERED: cloNIDine 0.1 MG TAB PO PRN (16:09)
[2020-02-13] MEDS: Carvedilol 3.125 MG TAB PO SCH (17:08)
[2020-02-13] MEDS: Atorvastatin Calcium 40 MG TAB PO SCH (20:24)
[2020-02-13] MEDS: Lorazepam 0.5 MG TAB PO PRN (20:27)
[2020-02-13] MEDS ORDERED: hydrALAZINE 25 MG TAB PO SCH (21:00)
[2020-02-14 04:31] LABS: BUN (Urea Nitrogen) 40 mg/dL (9.8-20.1); Calc. Creatinine Clearance 71 mL/min (70-130); Calcium 8.3 mg/dL (7.8-10.44); Glucose 153 mg/dL (83-110)
[2020-02-14 04:40] LABS: Chloride 93 mmol/L (98-107); Potassium 3.5 mmol/L (3.5-5.1); Sodium 141 mmol/L (136-145)
[2020-02-14 04:43] LABS: Anion Gap 14 mmol/L (10-20); Carbon Dioxide 38 mmol/L (23-31)
[2020-02-14] MEDS: Levothyroxine Sodium 75 MCG TAB PO SCH (05:50)
[2020-02-14] MEDS: Budesonide 0.5 MG/2 ML NEB NEB SCH ×2 (07:30→19:08)
[2020-02-14] MEDS ORDERED: Furosemide 40 MG TAB PO SCH (07:30)
[2020-02-14] MEDS: Enoxaparin Sodium 40 MG/0.4 ML SYRINGE SC SCH (09:11)
[2020-02-14] MEDS: Polyethylene Glycol 3350 17 GM Packet PO SCH (09:11)
[2020-02-14] MEDS: Diabetic Tussin 200 MG/10 ML UDCUP PO SCH ×3 (09:12→21:14)
[2020-02-14] MEDS: hydrALAZINE 25 MG TAB PO SCH ×3 (09:13→21:14)
[2020-02-14] MEDS: Famotidine 20 MG TAB PO SCH (09:13)
[2020-02-14] MEDS: Lisinopril 10 MG TAB PO SCH (09:14)
[2020-02-14] MEDS: Multivitamin W/ Minerals 1 TAB PO SCH (09:14)
[2020-02-14] MEDS: predniSONE 20 MG TAB PO SCH ×2 (09:14→21:15)
[2020-02-14] MEDS: Aspirin 81 mg Enteric Coated Tablet PO SCH (09:14)
[2020-02-14] MEDS: Cyanocobalamin (Vitamin B-12) 1,000 MCG TAB PO SCH (09:15)
[2020-02-14] MEDS: Spironolactone 25 MG TAB PO SCH (09:15)
[2020-02-14] MEDS: Carvedilol 3.125 MG TAB PO SCH (09:29)
--- NOTE | 2020-02-14 11:08 | PRG ---
DATE OF SERVICE: 02/14/2020 SUBJECTIVE: Yuridia Goodman this morning is still having some difficulty breathing, appears confused. OBJECTIVE: VITAL SIGNS: Temperature 98, pulse 71, blood pressure 130/46, saturation is 99% on 3 L, and respiratory rate 18. CHEST: No wheezing. No crackles. CARDIAC: Normal S1, S2. No gallops. ABDOMEN: No masses. ASSESSMENT: 1. Markedly abnormal chest x-ray, chronic scarring, fibrosis, possibly superimposed pneumonia, stable. 2. Chronic obstructive pulmonary disease. 3. Advanced age. 4. Azotemia. PLAN: Pulmonary [place]an, she is stable enough to be discharged home at any time. Followed by primary care physician. Job ID: [id number]
--- NOTE | 2020-02-14 13:41 | PDOC.HOSPP ---
- Subjective Encounter Date: 02/14/20 Encounter Time: 09:00 Subjective: no sob, is on nasal canula has not ambulated or stood up yet - Objective Vital Signs & Weight: Vital Signs (12 hours) Temp Pulse Resp BP BP Pulse Ox 02/14/20 13:34 182/75 H 02/14/20 12:30 98.6 F 79 18 181/74 H 98 02/14/20 09:14 130/46 L 02/14/20 09:13 71 163/69 H 02/14/20 08:00 98 F 71 16 163/69 H 99 02/14/20 03:50 97.7 F 73 20 180/74 H 100 Weight Admit Weight 134 lb 9.6 oz Weight 143 lb 8 oz Most Recent Monitor Data Heart Rate from ECG 80 NIBP 115/98 NIBP BP-Mean 103 Respiration from ECG 21 SpO2 98 I&O: 02/13/20 02/14/20 02/15/20 06:59 06:59 06:59 Intake Total 1274 480 Output Total 500 800 Balance 774 -320 Result Diagrams: 02/12/20 03:33 02/14/20 03:38 Hospitalist ROS - Medication Medications: Active Medications Generic Name Dose Route Start Last Admin Trade Name Freq PRN Reason Stop Dose Admin Albuterol/Ipratropium 3 ml 02/12/20 11:00 02/14/20 10:50 Ipratropium/Albuterol Sulfate 3 Ml Neb NEB 3 ml [id number] YANIRA Administration Aspirin 81 mg 02/10/20 09:00 02/14/20 09:14 Aspirin 81 Mg Enteric Coated Tablet PO 81 mg DAILY YANIRA Administration Atorvastatin Calcium 40 mg 02/10/20 21:00 02/13/20 20:24 Atorvastatin Calcium 40 Mg Tab PO 40 mg HS YANIRA Administration Budesonide 0.5 mg 02/10/20 06:30 02/14/20 07:30 Budesonide 0.5 Mg/2 Ml Neb NEB Not Given BID-RT YANIRA Clonidine 0.1 mg 02/13/20 16:09 02/14/20 13:34 Clonidine 0.1 Mg Tab PO 0.1 mg Q6H PRN Administration sbp >160 Cyanocobalamin 1,000 mcg 02/10/20 09:00 02/14/20 09:15 Cyanocobalamin (Vitamin B-12) 1,000 Mcg Tab PO 1,000 mcg DAILY YANIRA Administration Enoxaparin Sodium 40 mg 02/10/20 09:00 02/14/20 09:11 Enoxaparin Sodium 40 Mg/0.4 Ml Syringe SC 40 mg DAILY YANIRA Administration Famotidine 20 mg 02/10/20 09:00 02/14/20 09:13 Famotidine 20 Mg Tab PO 20 mg DAILY YANIRA Administration Guaifenesin 200 mg 02/10/20 09:00 02/14/20 09:12 Diabetic Tussin 200 Mg/10 Ml Udcup PO 200 mg TID YANIRA Administration Hydralazine HCl 50 mg 02/14/20 09:00 02/14/20 09:13 Hydralazine 25 Mg Tab PO 50 mg TID YANIRA Administration Iron/Minerals/Multivitamins 1 tab 02/14/20 09:00 02/14/20 09:14 Multivitamin W/ Minerals 1 Tab PO 1 tab DAILY YANIRA Administration Levofloxacin 500 mg 02/14/20 06:00 02/14/20 05:50 Levofloxacin 500 Mg Tab PO 02/19/20 06:01 500 mg 0600 YANIRA Administration Levothyroxine Sodium 75 mcg 02/14/20 06:00 02/14/20 05:50 Levothyroxine Sodium 75 Mcg Tab PO 75 mcg 0600 YANIRA Administration Lisinopril 10 mg 02/12/20 09:00 02/14/20 09:14 Lisinopril 10 Mg Tab PO 10 mg DAILY YANIRA Administration Lorazepam 0.5 mg 02/12/20 11:03 02/13/20 20:27 Lorazepam 0.5 Mg Tab PO 0.5 mg BIDPRN PRN Administration Anxiety Polyethylene Glycol 17 gm 02/14/20 09:00 02/14/20 09:11 Polyethylene Glycol 3350 17 Gm Packet PO Not Given DAILY YANIRA Prednisone 20 mg 02/12/20 21:00 02/14/20 09:14 Prednisone 20 Mg Tab PO 20 mg BID YANIRA Administration Sodium Chloride 10 ml 02/10/20 09:00 02/14/20 09:28 Flush - Normal Saline 10 Ml Syringe IVF 10 ml Q12HR YANIRA Administration Spironolactone 25 mg 02/13/20 08:00 02/14/20 09:15 Spironolactone 25 Mg Tab PO 25 mg QAM-WM YANIRA Administration - Exam General Appearance: awake alert Eye: PERRL, anicteric sclera ENT: no oropharyngeal lesions, moist mucosa Neck: supple, no JVD Heart: RRR, no murmur Respiratory: no wheezes, rales, rhonchi Gastrointestinal: soft, non-tender, non-distended, normal bowel sounds Extremities: no cyanosis, no edema Neurological: cranial nerve grossly intact, no focal deficits Hosp A/P (1) Acute and chronic respiratory failure with hypoxia Code(s): J96.21 - ACUTE AND CHRONIC RESPIRATORY FAILURE WITH HYPOXIA Status: Acute (2) Acute on chronic systolic heart failure Code(s): I50.23 - ACUTE ON CHRONIC SYSTOLIC (CONGESTIVE) HEART FAILURE Status: Acute (3) Chronic obstructive pulmonary disease with (acute) exacerbation Code(s): J44.1 - CHRONIC OBSTRUCTIVE PULMONARY DISEASE W (ACUTE) EXACERBATION Status: Acute (4) PNA (pneumonia) Code(s): J18.9 - PNEUMONIA, UNSPECIFIED ORGANISM Status: Acute Qualifiers: Pneumonia type: due to unspecified organism Laterality: left Lung location: upper lobe of lung Qualified Code(s): J18.9 - Pneumonia, unspecified organism (5) CAD (coronary artery disease) Code(s): I25.10 - ATHSCL HEART DISEASE OF [place] CORONARY ARTERY W/O ANG PCTRS Status: Chronic Qualifiers: Coronary Disease-Associated Artery/Lesion type: [place] artery [place] vs. transplanted heart: [place] heart Associated angina: without angina Qualified Code(s): I25.10 - Atherosclerotic heart disease of [place] coronary artery without angina pectoris (6) Aortic stenosis Code(s): I35.0 - NONRHEUMATIC AORTIC (VALVE) STENOSIS Status: Chronic Qualifiers: Cardiac valve disease etiology: nonrheumatic Qualified Code(s): I35.0 - Nonrheumatic aortic (valve) stenosis (7) HTN (hypertension) Code(s): I10 - ESSENTIAL (PRIMARY) HYPERTENSION Status: Chronic Qualifiers: (8) Hypothyroid Code(s): E03.9 - HYPOTHYROIDISM, UNSPECIFIED Status: Chronic Qualifiers: - Plan is on nasal canula O2 likely has underlying severe emphysema/copd with current pna and chf exacerbation prognosis guarded, she wants to be full code, d/w daughter over phone and gave full updates, she wants her going to inpt rehab (pt was scheduled to go to rehab prior to getting hospitalized per daughter) has bnp of 1737, alb is 2.7, pco2 is 72, aortic stenosis with h/o avr, ef of 40%, failure to thrive. likely has underlying severe with chf exac in addition to lung issues. continue steroids, pulmicort neb, asp, lipitor, hydralazine, lisinopril and spironolactone PT to mobilize as tolerated dc plan in am to rehab if accepted
[2020-02-14] MEDS: Atorvastatin Calcium 40 MG TAB PO SCH (21:14)
[2020-02-14] MEDS: Lorazepam 0.5 MG TAB PO PRN (21:15)
[2020-02-15] MEDS: Levothyroxine Sodium 75 MCG TAB PO SCH (05:07)
[2020-02-15] MEDS: Budesonide 0.5 MG/2 ML NEB NEB SCH (07:25)
[2020-02-15] MEDS: Lisinopril 10 MG TAB PO SCH (08:49)
[2020-02-15] MEDS: Spironolactone 25 MG TAB PO SCH (08:49)
[2020-02-15] MEDS: Aspirin 81 mg Enteric Coated Tablet PO SCH (08:49)
[2020-02-15] MEDS: hydrALAZINE 25 MG TAB PO SCH (08:49)
[2020-02-15] MEDS: Cyanocobalamin (Vitamin B-12) 1,000 MCG TAB PO SCH (08:49)
[2020-02-15] MEDS: Famotidine 20 MG TAB PO SCH (08:49)
[2020-02-15] MEDS: predniSONE 20 MG TAB PO SCH (08:49)
[2020-02-15] MEDS: Enoxaparin Sodium 40 MG/0.4 ML SYRINGE SC SCH (08:49)
[2020-02-15] MEDS: Lorazepam 0.5 MG TAB PO PRN (08:49)
[2020-02-15] MEDS: Polyethylene Glycol 3350 17 GM Packet PO SCH (08:50)
[2020-02-15] MEDS: Diabetic Tussin 200 MG/10 ML UDCUP PO SCH (08:50)
[2020-02-15] MEDS: Multivitamin W/ Minerals 1 TAB PO SCH (08:50)
--- NOTE | 2020-02-15 10:54 | PRG ---
DATE OF SERVICE: 02/15/2020 SUBJECTIVE: This morning, she is having breakfast without any distress. OBJECTIVE: VITAL SIGNS: Temperature is 97, pulse 75, respirations 18, saturations 95% on 2 L, blood pressure 160/70. CHEST: Crackles bilaterally. CARDIAC: Normal S1, S2. ABDOMEN: No masses. ASSESSMENT: 1. Markedly abnormal chest x-ray. 2. Chronic scarring and fibrosis. 3. Respiratory failure. 4. Severe deconditioning. PLAN: She is stable enough to be discharged home any time to rehab. Taper steroids. Continue antibiotics. Job ID: [id number]
[2020-02-15 12:03] VITALS: TEMP 97.9
[2020-02-15 13:10] VITALS: BP 152/66
--- NOTE | 2020-02-15 13:11 | PDOC.HOSPP ---
- Subjective Encounter Date: 02/15/20 Encounter Time: 09:00 Subjective: feels better, no sob is comfortable on nasal canula eating better now - Objective Vital Signs & Weight: Vital Signs (12 hours) Temp Pulse Resp BP Pulse Ox 02/15/20 11:40 97.9 F 79 15 158/68 H 95 02/15/20 11:10 81 16 02/15/20 08:40 97.7 F 75 18 162/70 H 94 L 02/15/20 07:26 63 16 02/15/20 04:00 97.9 F 78 16 132/60 96 Weight Admit Weight 134 lb 9.6 oz Weight 144 lb Most Recent Monitor Data Heart Rate from ECG 80 NIBP 115/98 NIBP BP-Mean 103 Respiration from ECG 21 SpO2 98 I&O: 02/14/20 02/15/20 02/16/20 06:59 06:59 06:59 Intake Total 480 1040 Output Total 800 1050 Balance -320 -10 Result Diagrams: 02/12/20 03:33 02/14/20 03:38 Hospitalist ROS - Medication Medications: Active Medications Generic Name Dose Route Start Last Admin Trade Name Freq PRN Reason Stop Dose Admin Albuterol/Ipratropium 3 ml 02/12/20 11:00 02/15/20 11:10 Ipratropium/Albuterol Sulfate 3 Ml Neb NEB 3 ml [id number] YANIRA Administration Aspirin 81 mg 02/10/20 09:00 02/15/20 08:49 Aspirin 81 Mg Enteric Coated Tablet PO 81 mg DAILY YANIRA Administration Atorvastatin Calcium 40 mg 02/10/20 21:00 02/14/20 21:14 Atorvastatin Calcium 40 Mg Tab PO 40 mg HS YANIRA Administration Budesonide 0.5 mg 02/10/20 06:30 02/15/20 07:25 Budesonide 0.5 Mg/2 Ml Neb NEB 0.5 mg BID-RT YANIRA Administration Clonidine 0.1 mg 02/13/20 16:09 02/14/20 13:34 Clonidine 0.1 Mg Tab PO 0.1 mg Q6H PRN Administration sbp >160 Cyanocobalamin 1,000 mcg 02/10/20 09:00 02/15/20 08:49 Cyanocobalamin (Vitamin B-12) 1,000 Mcg Tab PO 1,000 mcg DAILY YANIRA Administration Enoxaparin Sodium 40 mg 02/10/20 09:00 02/15/20 08:49 Enoxaparin Sodium 40 Mg/0.4 Ml Syringe SC 40 mg DAILY YANIRA Administration Famotidine 20 mg 02/10/20 09:00 02/15/20 08:49 Famotidine 20 Mg Tab PO 20 mg DAILY YANIRA Administration Guaifenesin 200 mg 02/10/20 09:00 02/15/20 08:50 Diabetic Tussin 200 Mg/10 Ml Udcup PO 200 mg TID YANIRA Administration Hydralazine HCl 50 mg 02/14/20 09:00 02/15/20 08:49 Hydralazine 25 Mg Tab PO 50 mg TID YANIRA Administration Iron/Minerals/Multivitamins 1 tab 02/14/20 09:00 02/15/20 08:50 Multivitamin W/ Minerals 1 Tab PO 1 tab DAILY YANIRA Administration Levofloxacin 500 mg 02/14/20 06:00 02/15/20 05:07 Levofloxacin 500 Mg Tab PO 02/19/20 06:01 500 mg 0600 YANIRA Administration Levothyroxine Sodium 75 mcg 02/14/20 06:00 02/15/20 05:07 Levothyroxine Sodium 75 Mcg Tab PO 75 mcg 0600 YANIRA Administration Lisinopril 10 mg 02/12/20 09:00 02/15/20 08:49 Lisinopril 10 Mg Tab PO 10 mg DAILY YANIRA Administration Lorazepam 0.5 mg 02/12/20 11:03 02/15/20 08:49 Lorazepam 0.5 Mg Tab PO 0.5 mg BIDPRN PRN Administration Anxiety Polyethylene Glycol 17 gm 02/14/20 09:00 02/15/20 08:50 Polyethylene Glycol 3350 17 Gm Packet PO Not Given DAILY YANIRA Prednisone 20 mg 02/12/20 21:00 02/15/20 08:49 Prednisone 20 Mg Tab PO 20 mg BID YANIRA Administration Sodium Chloride 10 ml 02/10/20 09:00 02/15/20 08:51 Flush - Normal Saline 10 Ml Syringe IVF 10 ml Q12HR YANIRA Administration Spironolactone 25 mg 02/13/20 08:00 02/15/20 08:49 Spironolactone 25 Mg Tab PO 25 mg QAM-WM YANIRA Administration - Exam General Appearance: awake alert Eye: PERRL, anicteric sclera ENT: no oropharyngeal lesions, moist mucosa Neck: supple, no JVD Heart: RRR, no murmur Respiratory: no wheezes, rales, rhonchi Gastrointestinal: soft, non-tender, non-distended, normal bowel sounds Extremities: no cyanosis, 1+ LE edema Neurological: cranial nerve grossly intact, no focal deficits Psychiatric: A&O x 3 Hosp A/P (1) Acute and chronic respiratory failure with hypoxia Code(s): J96.21 - ACUTE AND CHRONIC RESPIRATORY FAILURE WITH HYPOXIA Status: A cute (2) Acute on chronic systolic heart failure Code(s): I50.23 - ACUTE ON CHRONIC SYSTOLIC (CONGESTIVE) HEART FAILURE Status: Acute (3) Chronic obstructive pulmonary disease with (acute) exacerbation Code(s): J44.1 - CHRONIC OBSTRUCTIVE PULMONARY DISEASE W (ACUTE) EXACERBATION Status: Acute (4) PNA (pneumonia) Code(s): J18.9 - PNEUMONIA, UNSPECIFIED ORGANISM Status: Acute Qualifiers: Pneumonia type: due to unspecified organism Laterality: left Lung location: upper lobe of lung Qualified Code(s): J18.9 - Pneumonia, unspecified organism (5) CAD (coronary artery disease) Code(s): I25.10 - ATHSCL HEART DISEASE OF [place] CORONARY ARTERY W/O ANG PCTRS Status: Chronic Qualifiers: Coronary Disease-Associated Artery/Lesion type: [place] artery [place] vs. transplanted heart: [place] heart Associated angina: without angina Qualified Code(s): I25.10 - Atherosclerotic heart disease of [place] coronary artery without angina pectoris (6) Aortic stenosis Code(s): I35.0 - NONRHEUMATIC AORTIC (VALVE) STENOSIS Status: Chronic Qualifiers: Cardiac valve disease etiology: nonrheumatic Qualified Code(s): I35.0 - Nonrheumatic aortic (valve) stenosis (7) HTN (hypertension) Code(s): I10 - ESSENTIAL (PRIMARY) HYPERTENSION Status: Chronic Qualifiers: (8) Hypothyroid Code(s): E03.9 - HYPOTHYROIDISM, UNSPECIFIED Status: Chronic Qualifiers: - Plan is on nasal canula O2 likely has underlying severe emphysema/copd with current pna and chf exacerbation prognosis guarded, she wants to be full code, d/w daughter over phone and gave full updates, she wants her going to inpt rehab (pt was scheduled to go to rehab prior to getting hospitalized per daughter) has bnp of 1737, alb is 2.7, pco2 is 72, aortic stenosis with h/o avr, ef of 40%, failure to thrive. likely has underlying severe with chf exac in addition to lung issues. continue steroids, pulmicort neb, asp, lipitor, hydralazine, lisinopril and spironolactone PT to mobilize as tolerated dc plan to rehab if accepted anytime
--- NOTE | 2020-02-16 19:18 | DIS ---
DATE OF ADMISSION: 02/09/2020 DATE OF DISCHARGE: 02/15/2020 DISCHARGE DISPOSITION: To inpatient rehab. PRIMARY DISCHARGE DIAGNOSES: Pneumonia, community acquired; acute on chronic respiratory failure with hypoxia; acute on chronic congestive heart failure exacerbation with systolic dysfunction; and chronic obstructive pulmonary disease exacerbation. SECONDARY DISCHARGE DIAGNOSES: Coronary artery disease, history of transcatheter aortic valve replacement with aortic stenosis, hypertension, and hypothyroidism. PROCEDURES DONE DURING HOSPITALIZATION: Echo with 2D Doppler done, which was suboptimal and technically inadequate exam. LV ejection fraction appeared to be reduced on this. Aortic valve leaflets were not well visualized on the echo. Chest x-ray done on the day of admission showed new patchy opacity in the left upper lobe, suspicious for pneumonia. Has chronic lung changes otherwise seen. Blood cultures x2, no growth. H and H of 8.6 and 27, platelet count 243, MCV 98, and white count of 10. Blood gas on arrival showed a pH of 7.35, pCO2 of 72, and PO2 of 49. Serum bicarb is 38, BUN 40, creatinine 0.6, BNP was 1737, and albumin 2.7. DISCHARGE MEDICATIONS: 1. Spironolactone 25 mg p.o. daily. 2. Vitamin B12 of 1000 mcg p.o. daily. 3. DuoNebs three times daily. 4. Pepcid 20 mg daily. 5. Atorvastatin 40 mg p.o. at bedtime. 6. Lorazepam 0.5 mg p.o. q.6 hourly p.r.n. for severe anxiety. 7. MiraLAX 17 g daily. 8. Protonix 40 mg p.o. daily. 9. Pulmicort nebulizer twice daily. 10. Synthroid 75 mcg p.o. daily. 11. Multivitamin one tab once daily. 12. Trelegy Ellipta inhaler daily. 13. Vitamin C 500 mg daily. 14. Lisinopril 10 mg daily. 15. Hydralazine 50 mg 3 times daily. 16. Aspirin 81 mg p.o. daily. 17. Lasix 40 mg p.o. daily. 18. Levaquin 500 mg p.o. daily for another 4 days. 19. Prednisone 20 mg p.o. daily for another 4 days. ALLERGIES: TO SINGULAIR AND SHELLFISH. DISCHARGE PLAN: The patient to follow up with Dr. Chapa, her primary subscription clerk in 2 weeks and her primary care physician, Dr. Lesly Fox in 1 week. BRIEF COURSE DURING HOSPITALIZATION: The patient initially got admitted on the 09 of February with complaints of shortness of breath. She in fact was sent over from rehab. The patient's saturations were 64% on room air. The patient had history of COVID pneumonia and was not on any precautions due to chronicity of her issues. 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 The patient was on broad-spectrum antibiotics and also gentle diuresis was done due to elevated BNP. The patient has known history of systolic dysfunction. She was initially in IMCU on high-flow oxygen and was later downgraded to telemetry. The patient is beginning to mobilize a bit with physical therapy. Due to multiple medical issues and the patient wanting to go home, she is being discharged to inpatient rehab for further recuperation prior to going home. She is requiring 2 L nasal cannula oxygen and needs to go home on this from rehab. The patient has severe chronic lung changes and likely will need home oxygen when she is discharged from rehab. She also needs to have close followup with Dr. Chapa and her ortho/prosthetic aide as well. Her overall prognosis is guarded. A total of 35 minutes was spent on discharge plan. Please see a [id number] documentation for the day of discharge on [facility]. Job ID: [id number]
--- NOTE | 2020-02-17 14:54 | EKG ---
Test Reason : Blood Pressure : / mmHG Vent. Rate : 087 BPM Atrial Rate : 087 BPM P-R Int : 226 ms QRS Dur : 140 ms QT Int : 414 ms P-R-T Axes : 047 000 142 degrees QTc Int : 498 ms Electronic ventricular pacemaker Confirmed by EDMUND DONALDSON MD ([id number]), tape editor HARMONY MAIER ([id number]) on 02/17/2020 2:53:52 PM Referred By: Confirmed By:EDMUND DONALDSON MD
== END 2020-02-15 15:25 | DRG 291 ==
LOC: ERS 17:50 → 2SW 21:10 → IMCU/EMU 02-10 04:40 → 2NO 02-13 19:49
PROVIDERS: ADMIT Internal Medicine; ATTEND Internal Medicine
DX: I11.0 Hypertensive heart disease with heart failure (principal); J18.9 Pneumonia, unspecified organism; J96.21 Acute and chronic respiratory failure with hypoxia; E87.2 Acidosis; I50.23 Acute on chronic systolic (congestive) heart failure; E78.5 Hyperlipidemia, unspecified; E03.9 Hypothyroidism, unspecified; J43.9 Emphysema, unspecified; I35.0 Nonrheumatic aortic (valve) stenosis; I25.10 Atherosclerotic heart disease of native coronary artery without angina pectoris; R62.7 Adult failure to thrive; J84.10 Pulmonary fibrosis, unspecified; R53.81 Other malaise; F41.9 Anxiety disorder, unspecified; F32.9 Major depressive disorder, single episode, unspecified; Z95.5 Presence of coronary angioplasty implant and graft; Z95.2 Presence of prosthetic heart valve; Z95.0 Presence of cardiac pacemaker; Z90.711 Acquired absence of uterus with remaining cervical stump; Z90.89 Acquired absence of other organs; Z88.8 Allergy status to other drugs, medicaments and biological substances; Z86.19 Personal history of other infectious and parasitic diseases; Z68.28 Body mass index [BMI] 28.0-28.9, adult; Z87.891 Personal history of nicotine dependence; Z91.013 Allergy to seafood
CPT/HCPCS: 36415; 36416; 36600; 71045; 80048; 80053; 80202; 82550; 82553; 82805; 83605; 83880; 84484; 85025; 87040; 93005; 93306; 93798; 94640; 94760; 96365; 96367; 96368; J0360; J0692; J1644; J1650; J1940; J1956; J2060; J2920; J3370; J3490; J7050; J7512; J7620; J7626

== ENCOUNTER 2020-02-25 16:46 | Emergency (ER) | payer MEDICARE, BC ==
[2020-02-25] MEDS ORDERED: niCARdipine 20MG In NaCl 0 MG/0 ML BAG ONE (16:51)
[2020-02-25 17:21] LABS: Hemoglobin 8.7 g/dL (12.0-16.0); Mean Corpuscular HGB CONC 30.9 g/dL (32.0-36.0); Mean Corpuscular Hemoglobin 29.8 pg (27.0-31.0); Mean Corpuscular Volume 96.5 fL (78.0-98.0); Mean Platelet Volume 8.7 fL (7.4-10.4); Platelet Count 169 thou/uL (130-400); RBC Distribution Width 17.3 % (11.5-14.5); Red Blood Cell (RBC) Count 2.93 mill/uL (4.20-5.40); White Blood Cell (WBC) Count 16.4 thou/uL (4.8-10.8)
--- NOTE | 2020-02-25 17:34 | RAD ---
Chest AP view INDICATION: History of aortic dissection COMPARISON: CT of the chest dated 02/25/2020 chest radiograph dated 02/25/2020 FINDINGS: Lungs: Bilateral airspace disease is stable Cardiac silhouette: Cardiomegaly and aortic valvular replacement and dual-lead pacemaker is unchange d. Pulmonary vasculature: Pulmonary vascular congestion persists Pleural spaces: Small loculated bilateral pleural effusions are similar. Upper abdomen: No abnormality seen. Osseous structures: No acute osseous abnormality. Additional findings: None. IMPRESSION: Stable exam
[2020-02-25 17:42] LABS: ALT (SGPT) 43 U/L (8-55); AST (SGOT) 71 U/L (5-34); Albumin 2.8 g/dL (3.4-4.8); Alkaline Phosphatase 143 U/L (40-110); BUN (Urea Nitrogen) 40 mg/dL (9.8-20.1); Bilirubin, Total 0.5 mg/dL (0.2-1.2); CK (CPK) 32 U/L (29-168); Calc. Creatinine Clearance 0 mL/min (70-130); Calcium 8.5 mg/dL (7.8-10.44); Globulin 3.2 g/dL (2.4-3.5); Glucose 98 mg/dL (83-110)
[2020-02-25 17:51] LABS: Anisocytosis SLIGHT = 6-15 cells (100X) (0-5/hpf); Band 2 % (5-11); Eosinophils 2 % (0-10); Lymphocytes 5 % (21-51); MDiff Complete? YES; Monocytes 10 % (0-10); Neutrophil 80 % (42-75); Ovalocytes SLIGHT = 2-5 cells (100X) (0-1/hpf); Platelet Morphology Comment Appears Adequate; Polychromasia SLIGHT = 2-3 cells (100X) (0-2/hpf)
[2020-02-25 17:52] LABS: Anion Gap 18 mmol/L (10-20); Carbon Dioxide 34 mmol/L (23-31); Chloride 95 mmol/L (98-107); Potassium 5.3 mmol/L (3.5-5.1); Sodium 142 mmol/L (136-145)
[2020-02-25 18:05] LABS: CKMB 1.8 ng/mL (0-6.6)
[2020-02-25] MEDS ORDERED: niCARdipine 20MG In NaCl 20 MG/200 ML BAG ONE (18:43)
[2020-02-25 19:22] LABS: SARS-CoV-2 NAA Rapid Test Not Detected (NotDetected)
--- NOTE | 2020-03-02 16:55 | EKG ---
Test Reason : Blood Pressure : / mmHG Vent. Rate : 076 BPM Atrial Rate : 076 BPM P-R Int : 186 ms QRS Dur : 146 ms QT Int : 434 ms P-R-T Axes : 052 027 136 degrees QTc Int : 488 ms Electronic ventricular pacemaker Confirmed by LUIS FELIPE BEAUCHAMP ([id number]), associate entertainment editor HARMONY MAIER ([id number]) on 03/02/2020 4:55:23 PM Referred By: Confirmed By:LUIS FELIPE Richards
== END 2020-02-25 18:51 | disposition short-term general hospital (02) ==
LOC: ERS 16:46
DX: I71.00 Dissection of unspecified site of aorta (principal); Z79.82 Long term (current) use of aspirin; Z79.899 Other long term (current) drug therapy
CPT/HCPCS: 0240U; 71045; 80053; 82550; 82553; 83605; 84484; 85025; 86850; 86900; 86901; 93005; 96365